=== PATIENT | female | born 1965 | race Caucasian/White ===

== ENCOUNTER 2017-08-16 01:16 | Inpatient (IN) | END 2017-08-19 15:05 | disposition home health service (06) | DRG 597 ==

== ENCOUNTER 2017-10-09 22:49 | Inpatient (IN) | END 2017-10-23 16:36 | disposition home or self-care (01) | DRG 809 ==

== ENCOUNTER 2017-11-20 12:52 | Inpatient (IN) | END 2017-11-29 19:00 | disposition home health service (06) | DRG 872 ==

== ENCOUNTER 2018-02-25 15:26 | Inpatient (IN) | payer MEDICAID, OTHER ==
[~2018-02-25] VITALS: Ht 152.4 cm; Wt 59.1 kg
[~2018-02-25 15:26] MED LIST: ACET325T40 PO; DOXY100T21 PO; HYDR-2457 PO; LACT1CAP28 PO; LOPE-123 PO; MAGN400T27 PO; MEGE400O4 PO; MORP30TA3 PO; MUPI22OI2 TOP; NIFE60TA2 PO; ONDA4TAB13 PO
[2018-02-25] MEDS ORDERED: SOD CHLORIDE 0.9% 1,000 ML IV STA (16:56)
[2018-02-25] MEDS ORDERED: OXYC-481 PO (17:09)
[2018-02-25] MEDS ORDERED: morphine 4 MG/ML VIAL IV STA (17:14)
--- NOTE | 2018-02-25 17:14 | ERD ---
ER Documentation Chief Complaint Chief Complaint BIB SELF, REFERRED BY ONCOLOGIST, CC: N/V UNABLE TO EAT X 3 DAYS HPI This is a 52-year-old female with a history of breast cancer, who is currently on chemotherapy who presents for nausea and vomiting for the last 3 days. She endorses generalized body aches as well, she denies fever, her last dose of chemotherapy was on February 16. She denies chest pain or shortness of breath, there are no alleviating or aggravating factors. She denies abdominal pain. ROS All systems reviewed and are negative except as per history of present illness. Medications Home Meds Active Scripts Ondansetron Hcl* (Zofran*) 4 Mg Tab, 4 MG PO Q6H PRN for NAUSEA AND OR VOMITING, #60 TAB Prov:BEBA CASTRO 10/23/17 Reported Medications Oxycodone Hcl* (IR) (Roxicodone*) 5 Mg Tab, 5 MG PO Q6H PRN for PAIN, TAB 02/25/18 Discontinued Scripts Doxycycline Monohydrate* (Doxycycline Monohydrate*) 100 Mg Tablet, 100 MG PO BID for 10 Days, #20 TAB Prov:ELVIA MEAD 11/29/17 Mupirocin* (Bactroban*) 2% -22 Gram Oint...g., 1 APPLIC TOP BID for 10 Days, #14 1 Refill Apply as directed Prov:MELIA WHITE MD 11/28/17 Magnesium Oxide* (Mag-Oxide*) 400 Mg Tablet, 400 MG PO BID for 7 Days, #14 TAB Prov:MELIA WHITE MD 11/28/17 Lactobacillus Rhamnosus GG (Culturelle) 1 Each Capsule, 1 CAP PO BID for 10 Days, #20 CAP otc Prov:MELIA WHITE MD 11/28/17 Acetaminophen (MAPAP) 325 Mg Tablet, 650 MG PO Q6H PRN for PAIN LEVEL 1-3 OR FEVER for 1 Day, TAB Prov:MELIA WHITE MD 11/28/17 Nifedipine (Procardia Xl) 60 Mg Tab.er.24, 60 MG PO DAILY for 14 Days, #14 TAB Prov:MELIA WHITE MD 11/28/17 Morphine Sulfate (Morphine Sulfate ER) 30 Mg Tablet.er, 30 MG PO Q12H, #30 TAB Prov:NGUYEN GONZALEZ MD 10/31/17 Megestrol Acetate (Megestrol Acetate) 400 Mg/10 Ml Oral.susp, 400 MG PO BID, #60 TAB Prov:NGUYEN GONZALEZ MD 10/31/17 Hydrocodone Bit-Acetaminophen (Hydrocodone Bit-Acetaminophen) 10-300 Mg Tablet, 1 TAB PO Q6H PRN for PAIN, #30 TAB Prov:NGUYEN GONZALEZ MD 10/31/17 Loperamide Hcl* (Loperamide Hcl*) 2 Mg Cap, 2 MG PO QID PRN for DIARRHEA, #60 CAP Prov:BEBA CASTRO 10/23/17 Allergies Allergies: Coded Allergies: No Known Allergy (Unverified , 02/25/18) PMhx/Soc History of Surgery: No Anesthesia Reaction: No Hx Neurological Disorder: No Hx Respiratory Disorders: No Hx Cardiac Disorders: Yes (htn ) Hx Psychiatric Problems: No Hx Miscellaneous Medical Probl: No Hx Alcohol Use: No Hx Substance Use: No Hx Tobacco Use: No Physical Exam Vitals Vital Signs Date Temp Pulse Resp B/P (MAP) Pulse Ox O2 O2 Flow FiO2 Time Delivery Rate 02/25/18 98.0 88 16 140/74 100 Room Air 18:44 (96) 02/25/18 98.8 101 16 119/72 100 15:38 (88) Physical Exam Const: Uncomfortable, chronically ill-appearing femur Head: Atraumatic Eyes: Normal Conjunctiva ENT: Normal External Ears, Nose and Mouth. Neck: Full range of motion. No meningismus. Resp: Clear to auscultation bilaterally Cardio: Regular rate and rhythm, no murmurs Abd: Soft, non tender, non distended. Normal bowel sounds Skin: No petechiae or rashes Back: No midline or flank tenderness Ext: No cyanosis, or edema Neur: Awake and alert Psych: Normal Mood and Affect Result Diagram: 02/26/1842602/26/18426 Results 24 hrs Laboratory Tests Test 02/25/18 17:09 White Blood Count 1.5 10^3/ul Red Blood Count 1.78 10^6/ul Hemoglobin 6.2 g/dl Hematocrit 18.1 % Mean Corpuscular Volume 101.7 fl Mean Corpuscular Hemoglobin 34.8 pg Mean Corpuscular Hemoglobin Concent 34.3 g/dl Red Cell Distribution Width 18.2 % Platelet Count 100 10^3/UL Mean Platelet Volume 10.3 fl Immature Granulocytes % 0.000 % Neutrophils % % Segmented Neutrophils % (Manual) 28 % Band Neutrophils % (Manual) 2 % Lymphocytes % % Lymphocytes % (Manual) 50 % Reactive Lymphocytes % (Manual) 8 % Monocytes % % Monocytes % (Manual) 8 % Eosinophils % % Basophils % % Basophils % (Manual) 3 % Nucleated Red Blood Cells % 1 % Immature Granulocytes # 0.000 10^3/ul Neutrophils # 10^3/ul Neutrophils # (Manual) 0.4 10^3/ul Band Neutrophils # 0.0 10^3/ul Lymphocytes (Manual) 0.7 10^3/ul Lymphocytes # 10^3/ul Reactive Lymphocytes # 0.1 10^3/ul Monocytes # 10^3/ul Monocytes # (Manual) 0.1 10^3/ul Eosinophils # 10^3/ul Basophils # 10^3/ul Basophils # (Manual) 0.0 10^3/ul Nucleated Red Blood Cells # 10^3/ul Pathologist Review (Hematology) YES Platelet Estimate DECREASED Giant Platelets 3 % Polychromasia 3+ Poikilocytosis 1+ Anisocytosis 2+ Macrocytosis 1+ Sodium Level 137 mmol/L Potassium Level 2.9 mmol/L Chloride Level 93 mmol/L Carbon Dioxide Level 30 mmol/L Anion Gap 14 Blood Urea Nitrogen 18 mg/dl Creatinine 1.15 mg/dl Est Glomerular Filtrat Rate mL/min 49 mL/min Glucose Level 101 mg/dl Lactic Acid Level 1.8 mmol/L Calcium Level 8.7 mg/dl Total Bilirubin 0.5 mg/dl Direct Bilirubin 0.00 mg/dl Indirect Bilirubin 0.5 mg/dl Aspartate Amino Transf (AST/SGOT) 47 IU/L Alanine Aminotransferase (ALT/SGPT) 41 IU/L Alkaline Phosphatase 67 IU/L Troponin I 0.013 ng/ml Total Protein 7.6 g/dl Albumin 4.1 g/dl Globulin 3.50 g/dl Albumin/Globulin Ratio 1.17 Lipase 37 U/L Current Medications Medications Dose Sig/Maame Start Time Status Last (Trade) Ordered Route PRN Stop Time Admin Dose Reason Admin Sodium 1,000 ml @ Q1H STAT 02/25/18 DC 02/25/18 Chloride 1,000 mls/hr IV 16:56 02/25/18 17:12 17:55 Morphine 4 mg ONCE STAT 02/25/18 DC Sulfate IV 17:14 02/25/18 (morphine) 17:16 1 mg ONCE STAT 02/25/18 DC 02/25/18 Hydromorphone IV 17:24 02/25/18 17:33 HCl 17:25 (Dilaudid) Ondansetron 4 mg ONCE STAT 02/25/18 DC 02/25/18 HCl (Zofran IV 17:24 02/25/18 17:33 Inj) 17:25 Sodium 250 ml @ 0 Q0M ONCE 02/25/18 DC Chloride mls/hr IV* 19:24 02/25/18 19:27 Potassium 80 meq ONCE STAT 02/25/18 DC 02/25/18 Chloride PO 19:27 02/25/18 20:18 (Klor-Con 20) 19:47 Procedures/MDM This is a 52-year-old female presents for evaluation of nausea and vomiting. Exam reveals a chronically ill-appearing, otherwise pleasant female, with nausea and vomiting. Differential diagnosis includes infection, although she has no fever, as well as side effects from her chemotherapy. She is given antiemetic and analgesia, however her labs are notable for hypokalemia, as well as anemia. Given her significant vomiting, and with slight abnormality I believe that she should be admitted, and this is in addition to her hemoglobin below baseline which could also be related to her chemotherapy, she will require transfusion with 2 units. Patient was agreeable to admission plan. Critical Care Time: 35 minutes Treatments/Evaluations: Close monitoring and treatment of unstable vital signs, cardiorespiratory, and neurologic status, while maintaining tight balance of fluid, respiratory, and cardiac interventions. This time includes discussing the case with the patient and the patient's family. This time does not include all procedures stated elsewhere in this record. This time also includes reviewing old records, labs and radiological studies. This time includes examining and re- examining the patient. Additionally, this time also includes arranging care with admitting and consulting physicians. EKG: Rate/Rhythm: Normal Sinus Rhythm QRS, ST, T-waves: Minimal T wave depressions in inferior leads Impression: No evidence of ischemia or arrhythmia Departure Diagnosis: Primary Impression: Nausea and vomiting Vomiting type: unspecified Vomiting Intractability: unspecified Qualified Codes: R11.2 - Nausea with vomiting, unspecified Additional Impressions: Anemia Anemia type: unspecified type Qualified Codes: D64.9 - Anemia, unspecified History of breast cancer Condition: Serious KUMARELVIA MD Feb 25, 2018 17:14
[2018-02-25] MEDS ORDERED: ONDANSETRON 4 MG INJ IV STA (17:24)
[2018-02-25] MEDS ORDERED: HYDROmorphONE 2 MG/ML SYG IV STA (17:24)
[2018-02-25] MEDS ORDERED: SOD CHLORIDE 0.9% 250 ML IV* ONE (19:24)
[2018-02-25] MEDS ORDERED: POTASSIUM CHLORIDE (SR) 20 MEQ TAB PO STA (19:27)
[2018-02-25] MEDS ORDERED: ACETAMINOPHEN 325 MG TAB PO PRN (22:00)
[2018-02-25] MEDS ORDERED: NACL 0.9% 3 ML SYG IV SCH (22:00)
[2018-02-25] MEDS ORDERED: ALBUTEROL/IPRATROPIUM (NEB) 3 ML AMP HHN PRN (22:00)
[2018-02-25] MEDS ORDERED: ONDANSETRON 4 MG INJ IV PRN (22:00)
[2018-02-26 02:10] VITALS: BP 109/54; PULSE 74; RESP 18
[2018-02-26 02:19] VITALS: Ht 152.4 cm; Wt 59.1 kg
[2018-02-26] MEDS ORDERED: COLLAGENASE 5 GM (UD JAR) TOP PRN (02:45)
[2018-02-26] MEDS ORDERED: PENDING SANTYL ORDER FOR WOUND CARE XX PRN (03:00)
--- NOTE | 2018-02-26 05:47 | HP ---
Date/Time of Note Date/Time of Note DATE: 02/26/18 TIME: 05:29 Assessment/Plan VTE Prophylaxis Pharmacological prophylaxis: heparin Lines/Catheters IV Catheter Type (from [facility]): Saline Lock Assessment/Plan Assessment/Plan 52-year-old female with left breast invasive ductal carcinoma diagnosed in July of last year status post chemo, facial and lower extremity cellulitis, anemia, brain lesion (per MRI 08/16/17) status post treatment with Decadron who presented to ER complaining of generalized body ache, nausea/vomiting and weakness found to be hypokalemic and pancytopenic with severe anemia, hemoglobin of 6.2. PLAN -Patient reported that she finished her chemo about 10 days ago. -Plan is for blood transfusion, replete potassium -Neutropenic precaution -Oncology consult -Patient with brain lesion as noted on MRI in July of last year. I am not quite sure if this represents a metastasis. She was treated with Decadron at that time. Need for repeat brain imaging per oncology. -Patient also has elevated creatinine of 1.15, which has been improving over the past 3 months. Given the timeframe, she is now considered to have CKD. Nephrology consult as needed. Result Diagram: 02/25/18 1709 02/25/18 1709 Results 24hrs Laboratory Tests Test 02/25/18 17:09 02/26/18 04:27 White Blood Count 1.5 #L Pending Red Blood Count 1.78 #L Pending Hemoglobin 6.2 *L Pending Hematocrit 18.1 #L Pending Mean Corpuscular Volume 101.7 H Pending Mean Corpuscular Hemoglobin 34.8 #H Pending Mean Corpuscular Hemoglobin Concent 34.3 Pending Red Cell Distribution Width 18.2 H Pending Platelet Count 100 #L Pending Mean Platelet Volume 10.3 # Pending Immature Granulocytes % 0.000 L Neutrophils % Segmented Neutrophils % (Manual) 28 L Band Neutrophils % (Manual) 2 Lymphocytes % Lymphocytes % (Manual) 50 Reactive Lymphocytes % (Manual) 8 H Monocytes % Monocytes % (Manual) 8 Eosinophils % Basophils % Basophils % (Manual) 3 H Nucleated Red Blood Cells % 1 H Immature Granulocytes # 0.000 Neutrophils # Neutrophils # (Manual) 0.4 L Band Neutrophils # 0.0 Lymphocytes (Manual) 0.7 L Lymphocytes # Reactive Lymphocytes # 0.1 H Monocytes # Monocytes # (Manual) 0.1 L Eosinophils # Basophils # Basophils # (Manual) 0.0 Nucleated Red Blood Cells # Pathologist Review (Hematology) YES Platelet Estimate DECREASED Giant Platelets 3 H Polychromasia 3+ Poikilocytosis 1+ Anisocytosis 2+ Macrocytosis 1+ Sodium Level 137 Potassium Level 2.9 *L Chloride Level 93 L Carbon Dioxide Level 30 Anion Gap 14 H Blood Urea Nitrogen 18 Creatinine 1.15 H Est Glomerular Filtrat Rate mL/min 49 L Glucose Level 101 Lactic Acid Level 1.8 Calcium Level 8.7 Total Bilirubin 0.5 Direct Bilirubin 0.00 Indirect Bilirubin 0.5 Aspartate Amino Transf (AST/SGOT) 47 H Alanine Aminotransferase (ALT/SGPT) 41 Alkaline Phosphatase 67 Troponin I 0.013 Total Protein 7.6 Albumin 4.1 Globulin 3.50 H Albumin/Globulin Ratio 1.17 Lipase 37 HPI/ROS Admit Date/Time Admit Date/Time Feb 25, 2018 at 19:55 Hx of Present Illness This is a 52-year-old female with left breast invasive ductal carcinoma diagnosed in July of last year status post chemo, facial and lower extremity cellulitis, anemia, brain lesion (per MRI) who presented to ER complaining of generalized body ache, nausea/vomiting and weakness. She said that she finished her chemo about 10 days ago. When presented to ER, she was found to have a hemoglobin of 6.2, WBC 1.5, platelets 100 and potassium 2.9. Patient had been admitted here times. Last admission was about 3 months ago. An MRI of the brain on 08/16/17 showed showed 5.9 mm rounded enhancing lesion in the left occipital lobe with slight adjacent vasogenic edema. At that time, patient was discharged on a Decadron. PMH/Family/Social Past Medical History Medications Current Medications IV Flush (NS 3 ml) 3 ml PER PROTOCOL IV ; Start 02/25/18 at 22:00 Ondansetron HCl (Zofran Inj) 4 mg Q6H PRN IV NAUSEA AND/OR VOMITING; Start 02/25/18 at 22:00 Acetaminophen (Tylenol Tab) 650 mg Q6H PRN PO PAIN LEVEL 1-3 OR FEVER; Start 02/25/18 at 22:00 Albuterol/ Ipratropium (Duoneb) 3 ml Q2H RESP THERAPY PRN HHN SHORTNESS OF BREATH; Start 02/25/18 at 22:00 Oxycodone HCl (Roxicodone) 5 mg Q6H PRN PO PAIN; Start 02/25/18 at 22:00 Collagenase (Santyl) 1 applic DAILY TOP ; Start 02/26/18 at 09:00 Collagenase (Santyl) 1 applic PRN PRN TOP SOILING; Start 02/26/18 at 02:45 Coded Allergies: No Known Allergy (Unverified , 02/25/18) Past Surgical History Past Surgical Hx: other Family History Significant Family History: no pertinent family hx Social History Smoking Status: Never smoker Exam/Review of Systems Vital Signs Vitals Vital Signs Date Temp Pulse Resp B/P (MAP) Pulse Ox O2 O2 Flow FiO2 Time Delivery Rate 02/26/18 98.3 74 18 109/54 100 02:10 (72) 02/26/18 Room Air 01:02 Intake and Output 02/25/18 02/25/18 02/26/18 1414:59 22:59 06:59 IntakeIntake Total 2170 ml OutputOutput Total 0 ml BalanceBalance 2170 ml Exam Exam Constitutional: other (no acute distress) Head: normocephalic Respiratory: other (slight decreased at bases) Cardiovascular: regular rate and rhythm Gastrointestinal: soft Extremities: normal pulses PMH/Family/Social Past Medical History Medical History: other (see hpi) Coded Allergies: No Known Drug Allergy (Verified Allergy, Unknown, 10/10/15) Past Surgical History Past Surgical Hx: other (see hpi) Family History Significant Family History: no pertinent family hx Social History Alcohol Use: other Smoking Status: Unknown if ever smoked Drug Use: other ARNAV CLARK MD Feb 26, 2018 05:39
[2018-02-26 08:00] VITALS: BP 101/56; PULSE 73; RESP 16
[2018-02-26] MEDS: COLLAGENASE 5 GM (UD JAR) TOP SCH (09:00)
[2018-02-26] MEDS: oxyCODONE 5 MG TAB PO PRN ×2 (09:37→21:42)
[2018-02-26] MEDS ORDERED: POTASSIUM CHLORIDE (SR) 20 MEQ TAB PO STA (12:55)
[2018-02-26] MEDS ORDERED: ONDANSETRON INJ 8 MG in SOD CHLORIDE 0.9% 50 ML IV PRN (13:00)
[2018-02-26] MEDS ORDERED: ONDANSETRON INJ 8 MG in DEXTROSE 5% 50 ML IV PRN (13:00)
--- NOTE | 2018-02-26 13:14 | PN ---
Date/Time of Note Date/Time of Note DATE: 02/26/18 TIME: 13:03 Assessment/Plan VTE Prophylaxis SCD applied (from Nsg): Yes Pharmacological prophylaxis: other Lines/Catheters IV Catheter Type (from Nrsg): Saline Lock Urinary Cath still in place: No Assessment/Plan Hospital Course S: The patient received PRBC transfusion yesterday. O: VS -see below PE: General: Lying in bed, no acute distress presently Head: Atraumatic Eyes: Normal Conjunctiva ENT: Normal External Ears, Nose and Mouth. Neck: Full range of motion. No meningismus. Resp: Clear to auscultation bilaterally Cardio: Regular rate and rhythm, no murmurs Abd: Soft, non tender, non distended. Normal bowel sounds Ext: No cyanosis, or edema Neur: No focal deficits Assessment/Plan: 52-year-old female with left breast invasive ductal carcinoma diagnosed in July of last year status post chemo, facial and lower extremity cellulitis, anemia, brain lesion (per MRI 08/16/17) status post treatment with Decadron who presented to ER complaining of generalized body ache, nausea/vomiting and weakness found to be hypokalemic and pancytopenic with severe anemia, hemoglobin of 6.2. # body pain/N/V - likely secondary to patient's cancer and recent chemotherapy -Continue IV fluids, antiemetics, pain control medications as needed -Follow hematology oncology recommendations #Pancytopenia: Again likely significant recent chemotherapy as outpatient. Received PRBC transfusion yesterday with improvement in hemoglobin, but patient still with leukopenia -Monitor CBC daily, follow hematology oncology recommendations -continue Neutropenic precaution #Invasive ductal breast carcinoma -Diagnosed July 2017 status post chemotherapy. Patient with brain lesion as noted on MRI in July of last year, not quite sure if this represents a metastasis. She was treated with Decadron at that time. -Monitor, follow-up recommendations from oncology consult #Renal insufficiency -Patient also has slightly elevated creatinine of 1.15, which has been improving over the past 3 months. -IV fluids, monitor BUN/creatinine levels, consider nephrology consult as needed if not improved. Result Diagram: 02/26/18 0427 02/26/18 0427 Results 24hrs Laboratory Tests Test 02/25/18 17:09 02/26/18 04:27 White Blood Count 1.5 #L 1.6 L Red Blood Count 1.78 #L 2.54 #L Hemoglobin 6.2 *L 8.4 #L Hematocrit 18.1 #L 24.1 #L Mean Corpuscular Volume 101.7 H 94.9 Mean Corpuscular Hemoglobin 34.8 #H 33.1 H Mean Corpuscular Hemoglobin Concent 34.3 34.9 Red Cell Distribution Width 18.2 H 17.9 H Platelet Count 100 #L 88 L Mean Platelet Volume 10.3 # 10.5 H Immature Granulocytes % 0.000 L 0.000 L Neutrophils % Segmented Neutrophils % (Manual) 28 L 22 L Band Neutrophils % (Manual) 2 2 Lymphocytes % Lymphocytes % (Manual) 50 37 Reactive Lymphocytes % (Manual) 8 H 2 H Monocytes % Monocytes % (Manual) 8 36 H Eosinophils % Basophils % Basophils % (Manual) 3 H Nucleated Red Blood Cells % 1 H 0.0 Immature Granulocytes # 0.000 0.000 Neutrophils # Neutrophils # (Manual) 0.4 L 0.4 L Band Neutrophils # 0.0 0.0 Lymphocytes (Manual) 0.7 L 0.5 L Lymphocytes # Reactive Lymphocytes # 0.1 H 0.0 Monocytes # Monocytes # (Manual) 0.1 L 0.5 Eosinophils # Basophils # Basophils # (Manual) 0.0 Nucleated Red Blood Cells # Pathologist Review (Hematology) YES Platelet Estimate DECREASED DECREASED Giant Platelets 3 H 3 H Polychromasia 3+ 2+ Poikilocytosis 1+ 1+ Anisocytosis 2+ 1+ Macrocytosis 1+ Sodium Level 137 141 Potassium Level 2.9 *L 3.0 L Chloride Level 93 L 99 Carbon Dioxide Level 30 30 Anion Gap 14 H 12 Blood Urea Nitrogen 18 17 Creatinine 1.15 H 1.20 H Est Glomerular Filtrat Rate mL/min 49 L 47 L Glucose Level 101 103 Lactic Acid Level 1.8 Calcium Level 8.7 8.3 L Total Bilirubin 0.5 0.6 Direct Bilirubin 0.00 0.00 Indirect Bilirubin 0.5 0.6 Aspartate Amino Transf (AST/SGOT) 47 H 39 Alanine Aminotransferase (ALT/SGPT) 41 34 Alkaline Phosphatase 67 54 Troponin I 0.013 Total Protein 7.6 6.8 Albumin 4.1 3.6 Globulin 3.50 H 3.20 Albumin/Globulin Ratio 1.17 1.12 Lipase 37 Myelocytes % (Manual) 1 H Myelocytes # 0.0 Microcytosis 1+ Phosphorus Level 2.8 Magnesium Level 1.2 L Exam/Review of Systems Vital Signs Vitals Vital Signs Date Temp Pulse Resp B/P (MAP) Pulse Ox O2 O2 Flow FiO2 Time Delivery Rate 02/26/18 98.3 73 16 101/56 100 08:00 (71) 02/26/18 Room Air 01:02 Intake and Output 02/25/18 02/25/18 02/26/18 1515:00 23:00 07:00 IntakeIntake Total 2170 ml OutputOutput Total 0 ml BalanceBalance 2170 ml Medications Medications Current Medications IV Flush (NS 3 ml) 3 ml PER PROTOCOL IV ; Start 02/25/18 at 22:00 Acetaminophen (Tylenol Tab) 650 mg Q6H PRN PO PAIN LEVEL 1-3 OR FEVER; Start 02/25/18 at 22:00 Albuterol/ Ipratropium (Duoneb) 3 ml Q2H RESP THERAPY PRN HHN SHORTNESS OF BR EATH; Start 02/25/18 at 22:00 Oxycodone HCl (Roxicodone) 5 mg Q6H PRN PO PAIN Last administered on 02/26/18at 09:37; Admin Dose 5 MG; Start 02/25/18 at 22:00 Collagenase (Santyl) 1 applic DAILY TOP ; Start 02/26/18 at 09:00 Collagenase (Santyl) 1 applic PRN PRN TOP SOILING; Start 02/26/18 at 02:45 Metoclopramide HCl (Reglan) 5 mg Q4H PRN IV NAUSEA; Start 02/26/18 at 13:00 Ondansetron HCl 8 mg/Sodium Chloride 54 ml @ 216 mls/hr Q6H PRN IV NAUSEA AND/OR VOMITING; Start 02/26/18 at 13:00 Potassium Chloride (Klor-Con 20) 40 meq ONCE STAT PO ; Start 02/26/18 at 12:55; Stop 02/26/18 at 12:56; Status UNV Potassium Chloride 10 meq/ Sodium Chloride 1,005 ml @ 75 mls/hr [id number] IV ; Start 02/26/18 at 13:00; Status UNV Magnesium Sulfate 3 gm/Dextrose 106 ml @ 35.333 mls/ hr ONCE ONCE IVPB ; Start 02/26/18 at 13:00; Stop 1/5/19 at 15:59; Status UNV Ondansetron HCl 8 mg/Dextrose 54 ml @ 108 mls/hr Q6H PRN IV NAUSEA AND/OR VOMITING; Start 02/26/18 at 13:00; Status UNV JERZY TAYLOR Feb 26, 2018 13:13
[2018-02-26] MEDS ORDERED: MAGNESIUM SULFATE 3 GM in DEXTROSE 5% 100 ML IVPB ONE (14:00)
[2018-02-26 14:23] VITALS: BP 108/58; PULSE 79; RESP 18
[2018-02-26] MEDS ORDERED: ONDANSETRON 4 MG INJ IV PRN (16:00)
--- NOTE | 2018-02-26 16:00 | CONS ---
Date/Time of Note Date/Time of Note DATE: 02/26/18 TIME: 15:49 Assessment/Plan Assessment/Plan Hospital Course #L sided Breast Cancer, Her2 + -pt has already undergone neoadjuvant radiation and chemotherapy with TCHP x 6 cycles -once her acute issues resolve she will proceed with surgery with Dr. Carrasquillo -this will be followed by 1 year of Herceptin/ Perjeta maintenance #Neutropenia -2/2 chemotherapy -pt does not appear actively infected -will start Neupogen 300 mcg q day #Anemia -2/2 chemotherapy -agree with blood transfusion. pt has responded well #MANDEEP -2/2 dehydration and anemia -Cr improving -continue IV fluids #Diarrhea -cidff negative -likely 2/2 chemotherapy -continue to monitor -Imodium as needed Result Diagram: 02/26/18 0427 02/26/18 0427 Results 24hrs Laboratory Tests Test 02/25/18 17:09 02/26/18 04:27 White Blood Count 1.5 #L 1.6 L Red Blood Count 1.78 #L 2.54 #L Hemoglobin 6.2 *L 8.4 #L Hematocrit 18.1 #L 24.1 #L Mean Corpuscular Volume 101.7 H 94.9 Mean Corpuscular Hemoglobin 34.8 #H 33.1 H Mean Corpuscular Hemoglobin Concent 34.3 34.9 Red Cell Distribution Width 18.2 H 17.9 H Platelet Count 100 #L 88 L Mean Platelet Volume 10.3 # 10.5 H Immature Granulocytes % 0.000 L 0.000 L Neutrophils % Segmented Neutrophils % (Manual) 28 L 22 L Band Neutrophils % (Manual) 2 2 Lymphocytes % Lymphocytes % (Manual) 50 37 Reactive Lymphocytes % (Manual) 8 H 2 H Monocytes % Monocytes % (Manual) 8 36 H Eosinophils % Basophils % Basophils % (Manual) 3 H Nucleated Red Blood Cells % 1 H 0.0 Immature Granulocytes # 0.000 0.000 Neutrophils # Neutrophils # (Manual) 0.4 L 0.4 L Band Neutrophils # 0.0 0.0 Lymphocytes (Manual) 0.7 L 0.5 L Lymphocytes # Reactive Lymphocytes # 0.1 H 0.0 Monocytes # Monocytes # (Manual) 0.1 L 0.5 Eosinophils # Basophils # Basophils # (Manual) 0.0 Nucleated Red Blood Cells # Pathologist Review (Hematology) YES Platelet Estimate DECREASED DECREASED Giant Platelets 3 H 3 H Polychromasia 3+ 2+ Poikilocytosis 1+ 1+ Anisocytosis 2+ 1+ Macrocytosis 1+ Sodium Level 137 141 Potassium Level 2.9 *L 3.0 L Chloride Level 93 L 99 Carbon Dioxide Level 30 30 Anion Gap 14 H 12 Blood Urea Nitrogen 18 17 Creatinine 1.15 H 1.20 H Est Glomerular Filtrat Rate mL/min 49 L 47 L Glucose Level 101 103 Lactic Acid Level 1.8 Calcium Level 8.7 8.3 L Total Bilirubin 0.5 0.6 Direct Bilirubin 0.00 0.00 Indirect Bilirubin 0.5 0.6 Aspartate Amino Transf (AST/SGOT) 47 H 39 Alanine Aminotransferase (ALT/SGPT) 41 34 Alkaline Phosphatase 67 54 Troponin I 0.013 Total Protein 7.6 6.8 Albumin 4.1 3.6 Globulin 3.50 H 3.20 Albumin/Globulin Ratio 1.17 1.12 Lipase 37 Myelocytes % (Manual) 1 H Myelocytes # 0.0 Microcytosis 1+ Phosphorus Level 2.8 Magnesium Level 1.2 L Consultation Date/Type/Reason Admit Date/Time Feb 25, 2018 at 19:55 Date of Consultation: Feb 26, 2018 Type of Consult oncology Reason for Consultation breast cancer/anemia Requesting Provider: JERZY TAYLOR of Present Illness MS Carrillo is a pleasant 52 yo female currently being treated by my associate Dr. Lewis for STAGE III ER-/GA-/Her2 + L sided Breast cancer. 02/16/18 pt completed her 6th cycles of neoadjuvant TCHP. Pt now presents with weakness, fatigue and diarrhea. Initial labs reveal a Hg 6.2, Cr 1.15 and K < 3. PT has since received 2 untis of PRBC and is currently receiving K supplementation and fluids. C diff is negative. Pt's sx have improved since admission. Constitutional: diaphoresis, febrile, poor po Eyes: no complaints ENT: no complaints Respiratory: pain, shortness of breath Cardiovascular: chest pain, lightheadedness Gastrointestinal: decreased appetite, diarrhea, nausea Genitourinary: no complaints Musculoskeletal: back pain, bone/joint pain Skin: no complaints Neurologic: no complaints Endocrine: no complaints Lymphatic: no complaints Past Medical History Medical History: no pertinent history Medications Current Medications IV Flush (NS 3 ml) 3 ml PER PROTOCOL IV ; Start 02/25/18 at 22:00 Acetaminophen (Tylenol Tab) 650 mg Q6H PRN PO PAIN LEVEL 1-3 OR FEVER; Start 02/25/18 at 22:00 Albuterol/ Ipratropium (Duoneb) 3 ml Q2H RESP THERAPY PRN HHN SHORTNESS OF BREATH; Start 02/25/18 at 22:00 Oxycodone HCl (Roxicodone) 5 mg Q6H PRN PO PAIN Last administered on 02/26/18at 09:37; Admin Dose 5 MG; Start 02/25/18 at 22:00 Collagenase (Santyl) 1 applic DAILY TOP ; Start 02/26/18 at 09:00 Collagenase (Santyl) 1 applic PRN PRN TOP SOILING; Start 02/26/18 at 02:45 Metoclopramide HCl (Reglan) 5 mg Q4H PRN IV NAUSEA; Start 02/26/18 at 13:00 Ondansetron HCl 8 mg/Sodium Chloride 54 ml @ 216 mls/hr Q6H PRN IV NAUSEA AND/OR VOMITING; Start 02/26/18 at 13:00 Potassium Chloride 10 meq/ Sodium Chloride 1,005 ml @ 75 mls/hr [id number] IV ; Start 02/26/18 at 14:00 Magnesium Sulfate 3 gm/Dextrose 106 ml @ 35.333 mls/ hr ONCE ONCE IVPB Last administered on 02/26/18at 15:20; Admin Dose 35.333 MLS/HR; Start 02/26/18 at 14:00; Stop 02/26/18 at 16:59 Ondansetron HCl 8 mg/Dextrose 54 ml @ 108 mls/hr Q6H PRN IV NAUSEA AND/OR VOMITING; Start 02/26/18 at 13:00 Allergies: Coded Allergies: No Known Allergy (Unverified , 02/25/18) Past Surgical History Past Surgical Hx: other Family History Significant Family History: no pertinent family hx Social History Alcohol Use: none Smoking Status: Never smoker Drug Use: none Exam/Review of Systems Vital Signs Vitals Vital Signs Date Temp Pulse Resp B/P (MAP) Pulse Ox O2 O2 Flow FiO2 Time Delivery Rate 02/26/18 98.4 79 18 108/58 100 14:23 (75) 02/26/18 Room Air 01:02 Intake and Output 02/25/18 02/25/18 02/26/18 1515:00 23:00 07:00 IntakeIntake Total 2170 ml OutputOutput Total 0 ml BalanceBalance 2170 ml Exam Constitutional: alert, oriented Psych: no complaints Head: atraumatic Eyes: nl conjunctiva ENMT: nl external ears & nose Neck: supple Respiratory: clear to auscultation Cardiovascular: regular rate and rhythm Gastrointestinal: soft Musculoskeletal: nl extremities to inspection Extremities: normal pulses Medications Medications Current Medications IV Flush (NS 3 ml) 3 ml PER PROTOCOL IV ; Start 02/25/18 at 22:00 Acetaminophen (Tylenol Tab) 650 mg Q6H PRN PO PAIN LEVEL 1-3 OR FEVER; Start 02/25/18 at 22:00 Albuterol/ Ipratropium (Duoneb) 3 ml Q2H RESP THERAPY PRN HHN SHORTNESS OF BREATH; Start 02/25/18 at 22:00 Oxycodone HCl (Roxicodone) 5 mg Q6H PRN PO PAIN Last administered on 02/26/18at 09:37; Admin Dose 5 MG; Start 02/25/18 at 22:00 Collagenase (Santyl) 1 applic DAILY TOP ; Start 02/26/18 at 09:00 Collagenase (Santyl) 1 applic PRN PRN TOP SOILING; Start 02/26/18 at 02:45 Metoclopramide HCl (Reglan) 5 mg Q4H PRN IV NAUSEA; Start 02/26/18 at 13:00 Ondansetron HCl 8 mg/Sodium Chloride 54 ml @ 216 mls/hr Q6H PRN IV NAUSEA AND/OR VOMITING; Start 02/26/18 at 13:00 Potassium Chloride 10 meq/ Sodium Chloride 1,005 ml @ 75 mls/hr [id number] IV ; Start 02/26/18 at 14:00 Magnesium Sulfate 3 gm/Dextrose 106 ml @ 35.333 mls/ hr ONCE ONCE IVPB Last administered on 02/26/18at 15:20; Admin Dose 35.333 MLS/HR; Start 02/26/18 at 14:00; Stop 02/26/18 at 16:59 Ondansetron HCl 8 mg/Dextrose 54 ml @ 108 mls/hr Q6H PRN IV NAUSEA AND/OR VOMITING; Start 02/26/18 at 13:00 MIKE RIVERO M.D. Feb 26, 2018 16:00
[2018-02-26 20:00] VITALS: BP 143/70; PULSE 86; RESP 18
[2018-02-26] MEDS: POTASSIUM CHLORIDE 10 MEQ in SOD CHLORIDE 0.45% 1,000 ML IV SCH (21:30)
[2018-02-27 02:00] VITALS: BP 113/62; PULSE 70; RESP 18
[2018-02-27] MEDS: POTASSIUM CHLORIDE 10 MEQ in SOD CHLORIDE 0.45% 1,000 ML IV SCH ×2 (03:24→11:22)
[2018-02-27 08:45] VITALS: BP 113/66; PULSE 64; RESP 18
[2018-02-27] MEDS: COLLAGENASE 5 GM (UD JAR) TOP SCH ×2 (09:00→10:00)
[2018-02-27] MEDS: METOCLOPRAMIDE 10 MG INJ IV PRN (10:00)
--- NOTE | 2018-02-27 12:31 | CONS ---
Date/Time of Note Date/Time of Note DATE: 02/27/18 TIME: 12:27 Assessment/Plan Assessment/Plan Assessment/Plan #L sided Breast Cancer, Her2 + -pt has already undergone neoadjuvant radiation and chemotherapy with TCHP x 6 cycles -once her acute issues resolve she will proceed with surgery with Dr. Carrasquillo -this will be followed by 1 year of Herceptin/ Perjeta maintenance #Neutropenia- wbc 2.1 today -2/2 chemotherapy -pt does not appear actively infected -will start Neupogen 300 mcg q day #Anemia Hgb -8.0 today; -2/2 chemotherapy - 02/25/2018- sp 2 units blood transfusion. pt has responded well #MANDEEP -2/2 dehydration and anemia -Cr improving- trended down to 1.10 -continue IV fluids #Diarrhea -c- diff negative -likely 2/2 chemotherapy -continue to monitor -Imodium as needed # Intractable nausea - cont Reglan, Zofran- effective # Acute Hypokalemia - management per PMD Approximately 35 min was spend in coordination of her care; dw staff. Patient seen in collaboration with Dr Vaughan Result Diagram: 02/27/18 0443 02/27/18 0443 Results 24hrs Laboratory Tests Test 02/27/18 04:43 White Blood Count 2.1 #L Red Blood Count 2.40 L Hemoglobin 8.0 L Hematocrit 23.1 L Mean Corpuscular Volume 96.3 Mean Corpuscular Hemoglobin 33.3 H Mean Corpuscular Hemoglobin Concent 34.6 Red Cell Distribution Width 18.2 H Platelet Count 97 L Mean Platelet Volume 10.0 Immature Granulocytes % 0.000 L Neutrophils % Segmented Neutrophils % (Manual) 20 L Lymphocytes % Lymphocytes % (Manual) 41 Reactive Lymphocytes % (Manual) 2 H Monocytes % Monocytes % (Manual) 37 H Eosinophils % Basophils % Nucleated Red Blood Cells % 0.0 Immature Granulocytes # 0.000 Neutrophils # Lymphocytes (Manual) 0.8 Lymphocytes # Reactive Lymphocytes # 0.0 Monocytes # Monocytes # (Manual) 0.7 Eosinophils # Basophils # Nucleated Red Blood Cells # Toxic Granulation 1+ Platelet Estimate DECREASED Giant Platelets 3 H Polychromasia 3+ Poikilocytosis 1+ Anisocytosis 1+ Microcytosis 1+ Sodium Level 136 Potassium Level 3.1 L Chloride Level 102 Carbon Dioxide Level 27 Anion Gap 7 Blood Urea Nitrogen 11 Creatinine 1.10 H Est Glomerular Filtrat Rate mL/min 52 L Glucose Level 86 Calcium Level 8.6 Phosphorus Level 2.7 Magnesium Level 2.1 Consultation Date/Type/Reason Admit Date/Time Feb 25, 2018 at 19:55 Initial Consult Date 02/26/18 Requesting Provider: JERZY TAYLOR 24 HR Interval Summary Free Text/Dictation -c/o nausea- zofran effective -on neutropenic precautions - no new issues reported overnight Detailed Summary Eyes: no complaints ENT: no complaints Respiratory: no complaints Cardiovascular: no complaints Gastrointestinal: diarrhea, nausea Genitourinary: no complaints Musculoskeletal: no complaints Skin: no complaints Neurologic: no complaints (.) Endocrine: no complaints Exam/Review of Systems Vital Signs Vitals Vital Signs Date Temp Pulse Resp B/P (MAP) Pulse Ox O2 O2 Flow FiO2 Time Delivery Rate 02/27/18 98.2 64 18 113/66 100 08:45 (82) 02/26/18 Room Air 01:02 Intake and Output 02/26/18 02/26/18 02/27/18 1515:00 23:00 07:00 IntakeIntake Total 240 ml 1506 ml 910 ml BalanceBalance 240 ml 1506 ml 910 ml Exam Constitutional: alert, well developed Psych: no complaints Eyes: nl conjunctiva, EOMI, nl lids, nl sclera ENMT: nl external ears & nose Neck: non-tender Respiratory: diminished breath sounds (bilaterally) Cardiovascular: nl pulses, other (s1s2) Gastrointestinal: soft, non-tender Musculoskeletal: nl extremities to inspection Extremities: normal pulses Neurological: nl mental status, nl speech Lymph: nontender Medications Medications Current Medications IV Flush (NS 3 ml) 3 ml PER PROTOCOL IV ; Start 02/25/18 at 22:00 Acetaminophen (Tylenol Tab) 650 mg Q6H PRN PO PAIN LEVEL 1-3 OR FEVER; Start 02/25/18 at 22:00 Albuterol/ Ipratropium (Duoneb) 3 ml Q2H RESP THERAPY PRN HHN SHORTNESS OF BREATH; Start 02/25/18 at 22:00 Oxycodone HCl (Roxicodone) 5 mg Q6H PRN PO PAIN Last administered on 02/26/18at 21:42; Admin Dose 5 MG; Start 02/25/18 at 22:00 Collagenase (Santyl) 1 applic DAILY TOP ; Start 02/26/18 at 09:00 Collagenase (Santyl) 1 applic PRN PRN TOP SOILING; Start 02/26/18 at 02:45 Metoclopramide HCl (Reglan) 5 mg Q4H PRN IV NAUSEA Last administered on 02/27/18at 10:00; Admin Dose 5 MG; Start 02/26/18 at 13:00 Potassium Chloride 10 meq/ Sodium Chloride 1,005 ml @ 75 mls/hr [id number] IV Last administered on 02/27/18at 11:22; Admin Dose 75 MLS/HR; Start 02/26/18 at 14:00 Ondansetron HCl 8 mg/Dextrose 54 ml @ 108 mls/hr Q6H PRN IV NAUSEA AND/OR VOMITING; Start 02/26/18 at 13:00 JACKSON BERGERON Feb 27, 2018 12:31 pm
[2018-02-27] MEDS ORDERED: LOPERAMIDE 2 MG CAP PO PRN (13:00)
[2018-02-27 14:59] VITALS: BP 106/64; PULSE 64; RESP 18
[2018-02-27] MEDS ORDERED: POTASSIUM CHLORIDE (SR) 20 MEQ TAB PO STA (15:01)
--- NOTE | 2018-02-27 15:10 | PN ---
Date/Time of Note Date/Time of Note DATE: 02/27/18 TIME: 15:06 Assessment/Plan VTE Prophylaxis Risk score (from Nsg)>0 risk: 4 SCD applied (from Nsg): Yes Pharmacological prophylaxis: other Lines/Catheters IV Catheter Type (from Nrsg): Saline Lock Urinary Cath still in place: No Assessment/Plan Hospital Course S: Per nursing staff, still having some diarrhea symptoms and nausea with food. Seen by hematology oncology team yesterday and today. No fevers overnight. O: VS -see below PE: General: Lying in bed, no acute distress presently Head: Atraumatic Eyes: Normal Conjunctiva ENT: Normal External Ears, Nose and Mouth. Neck: Full range of motion. No meningismus. Resp: Clear to auscultation bilaterally Cardio: Regular rate and rhythm, no murmurs Abd: Soft, non tender, non distended. Normal bowel sounds Ext: No cyanosis, or edema Neur: No focal deficits Assessment/Plan: 52-year-old female with left breast invasive ductal carcinoma diagnosed in July of last year status post chemo, facial and lower extremity cellulitis, anemia, brain lesion (per MRI 08/16/17) status post treatment with Decadron who presented to ER complaining of generalized body ache, nausea/vomiting and weakness found to be hypokalemic and pancytopenic with se delmi anemia, hemoglobin of 6.2. # body pain/N/V - likely secondary to patient's cancer and recent chemotherapy -Continue IV fluids, antiemetics, pain control medications as needed -Follow hematology oncology recommendations #Pancytopenia: Again likely significant recent chemotherapy as outpatient. Received PRBC transfusion 2 days ago with improvement in hemoglobin, but patient still with leukopenia. -Monitor CBC daily, follow hematology oncology recommendations -continue Neutropenic precaution -Per hematology oncology recognitions, start Neupogen 300 mcg daily -Replete low electrolytes -Imodium as needed for diarrhea, per hematology oncology rec's today #Invasive ductal breast carcinoma -Diagnosed July 2017 status post chemotherapy. Patient with brain lesion as noted on MRI in July of last year, not quite sure if this represents a metastasis. She was treated with Decadron at that time. -Monitor, follow-up recommendations from oncology consult #Renal insufficiency -Patient also has slightly elevated creatinine, which has been improving over the past 3 months. -IV fluids, monitor BUN/creatinine levels, consider nephrology consult as needed if not improved. Result Diagram: 02/27/18 0443 02/27/18 0443 Results 24hrs Laboratory Tests Test 02/27/18 04:43 White Blood Count 2.1 #L Red Blood Count 2.40 L Hemoglobin 8.0 L Hematocrit 23.1 L Mean Corpuscular Volume 96.3 Mean Corpuscular Hemoglobin 33.3 H Mean Corpuscular Hemoglobin Concent 34.6 Red Cell Distribution Width 18.2 H Platelet Count 97 L Mean Platelet Volume 10.0 Immature Granulocytes % 0.000 L Neutrophils % Segmented Neutrophils % (Manual) 20 L Lymphocytes % Lymphocytes % (Manual) 41 Reactive Lymphocytes % (Manual) 2 H Monocytes % Monocytes % (Manual) 37 H Eosinophils % Basophils % Nucleated Red Blood Cells % 0.0 Immature Granulocytes # 0.000 Neutrophils # Lymphocytes (Manual) 0.8 Lymphocytes # Reactive Lymphocytes # 0.0 Monocytes # Monocytes # (Manual) 0.7 Eosinophils # Basophils # Nucleated Red Blood Cells # Toxic Granulation 1+ Platelet Estimate DECREASED Giant Platelets 3 H Polychromasia 3+ Poikilocytosis 1+ Anisocytosis 1+ Microcytosis 1+ Sodium Level 136 Potassium Level 3.1 L Chloride Level 102 Carbon Dioxide Level 27 Anion Gap 7 Blood Urea Nitrogen 11 Creatinine 1.10 H Est Glomerular Filtrat Rate mL/min 52 L Glucose Level 86 Calcium Level 8.6 Phosphorus Level 2.7 Magnesium Level 2.1 Exam/Review of Systems Vital Signs Vitals Vital Signs Date Temp Pulse Resp B/P (MAP) Pulse Ox O2 O2 Flow FiO2 Time Delivery Rate 02/27/18 98.2 64 18 106/64 100 14:59 (78) 02/26/18 Room Air 01:02 Intake and Output 02/26/18 02/26/18 02/27/18 1515:00 23:00 07:00 IntakeIntake Total 240 ml 1506 ml 910 ml BalanceBalance 240 ml 1506 ml 910 ml Medications Medications Current Medications IV Flush (NS 3 ml) 3 ml PER PROTOCOL IV ; Start 02/25/18 at 22:00 Acetaminophen (Tylenol Tab) 650 mg Q6H PRN PO PAIN LEVEL 1-3 OR FEVER; Start 02/25/18 at 22:00 Albuterol/ Ipratropium (Duoneb) 3 ml Q2H RESP THERAPY PRN HHN SHORTNESS OF BREATH; Start 02/25/18 at 22:00 Oxycodone HCl (Roxicodone) 5 mg Q6H PRN PO PAIN Last administered on 02/26/18at 21:42; Admin Dose 5 MG; Start 02/25/18 at 22:00 Collagenase (Santyl) 1 applic DAILY TOP ; Start 02/26/18 at 09:00 Collagenase (Santyl) 1 applic PRN PRN TOP SOILING; Start 02/26/18 at 02:45 Metoclopramide HCl (Reglan) 5 mg Q4H PRN IV NAUSEA Last administered on 02/27/18at 10:00; Admin Dose 5 MG; Start 02/26/18 at 13:00 Potassium Chloride 10 meq/ Sodium Chloride 1,005 ml @ 75 mls/hr [id number] IV Last administered on 02/27/18at 11:22; Admin Dose 75 MLS/HR; Start 02/26/18 at 14:00 Ondansetron HCl 8 mg/Dextrose 54 ml @ 108 mls/hr Q6H PRN IV NAUSEA AND/OR VOMITING Last administered on 02/27/18at 13:02; Admin Dose 108 MLS/HR; Start 02/26/18 at 13:00 Loperamide HCl (Imodium Cap) 2 mg DAILY PRN PO DIARRHEA Last administered on 02/27/18at 13:02; Admin Dose 2 MG; Start 02/27/18 at 13:00 Potassium Chloride (Klor-Con 20) 40 meq ONCE STAT PO ; Start 02/27/18 at 15:01; Stop 02/27/18 at 15:02; Status JERZY BLUE Feb 27, 2018 15:10
[2018-02-27] MEDS: oxyCODONE 5 MG TAB PO PRN (15:44)
[2018-02-27] MEDS ORDERED: FILGRASTIM 300 MCG INJ SC SCH (17:00)
[2018-02-27 20:00] VITALS: BP 104/71; PULSE 72; RESP 19
[2018-02-28] MEDS: POTASSIUM CHLORIDE 10 MEQ in SOD CHLORIDE 0.45% 1,000 ML IV SCH ×2 (00:39→16:08)
[2018-02-28 02:00] VITALS: BP 111/65; PULSE 77; RESP 18
[2018-02-28] MEDS: COLLAGENASE 5 GM (UD JAR) TOP SCH (07:41)
[2018-02-28 08:36] VITALS: BP 111/55; PULSE 73; RESP 17
[2018-02-28] MEDS ORDERED: MAGNESIUM SULFATE 2 GM/50 ML 50 ML IVPB ONE (10:00)
--- NOTE | 2018-02-28 11:43 | CONS ---
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 who has completed brain XRT August 2017, followed by TCHP x 6 cycles completed 02/16 -stop GCSF -CT CAP now -discharge after diarrhea resolves, cont imodium -f/u with Dr Carrasquillo post scans for surgical planning -f/u with Dr Boss as per his rec Result Diagram: 02/28/18 0537 02/28/18 0537 Results 24hrs Laboratory Tests Test 02/28/18 05:37 White Blood Count 8.2 # Red Blood Count 2.62 L Hemoglobin 8.9 L Hematocrit 26.2 L Mean Corpuscular Volume 100.0 Mean Corpuscular Hemoglobin 34.0 H Mean Corpuscular Hemoglobin Concent 34.0 Red Cell Distribution Width 18.3 H Platelet Count 103 L Mean Platelet Volume 9.9 Immature Granulocytes % 1.500 H Neutrophils % Segmented Neutrophils % (Manual) 54 Band Neutrophils % (Manual) 16 H Lymphocytes % Lymphocytes % (Manual) 21 Monocytes % Monocytes % (Manual) 8 Eosinophils % Basophils % Metamyelocytes % (manual) 1 H Nucleated Red Blood Cells % 0.0 Immature Granulocytes # 0.120 H Neutrophils # Neutrophils # (Manual) 4.5 Band Neutrophils # 1.3 H Lymphocytes (Manual) 1.7 Lymphocytes # Monocytes # Monocytes # (Manual) 0.6 Eosinophils # Basophils # Metamyelocytes # 0.0 Nucleated Red Blood Cells # Platelet Estimate DECREASED Giant Platelets 8 H Polychromasia 1+ Anisocytosis 1+ Spherocytes 1+ Sodium Level 135 Potassium Level 3.7 Chloride Level 105 Carbon Dioxide Level 22 Anion Gap 8 Blood Urea Nitrogen 5 L Creatinine 1.08 H Est Glomerular Filtrat Rate mL/min 53 L Glucose Level 82 Calcium Level 8.7 Phosphorus Level 2.8 Magnesium Level 1.6 L Consultation Date/Type/Reason Admit Date/Time Feb 25, 2018 at 19:55 Initial Consult Date 02/26/18 Requesting Provider: JERZY TAYLOR 24 HR Interval Summary Free Text/Dictation 52 yo F with large, quickly growing L breast mass found to be malignant (biopsy done 6.15, path returned 6.18) Path showed invasive ductal carcinoma, grade 3/3. no DCIS ER/IA negative HER 2 richard +3 Had staging studies: NM bone scan 6.--no skeletal mets CT AP 6..18 Large left breast cancer with skin and chest wall involvement.. Hepatic steatosis with small cyst. No definite liver metastasis. Arterial phase imaging was not performed. MRI Brain 6. IMPRESSION: 5.9 mm rounded enhancing lesion in the left occipital lobe with slight adjacent vasogenic edema. Given the history, metastasis must be strongly considered. she completed brain radiation by Dr Boss for presumed brain met. Also has completed TCHP x 6 cycles a few weeks ago Plan is for restaging scans as an outpt then surgery with Dr Carrasquillo for left breast mastectomy. Followed by 1 year total of herceptin and perjeta She was admitted for neutropenia without sepsis and anemia and electrolyte imbalance Constitutional: poor po Detailed Summary Eyes: no complaints ENT: no complaints Respiratory: no complaints Cardiovascular: no complaints Gastrointestinal: decreased appetite, diarrhea Genitourinary: no complaints Skin: no complaints Neurologic: no complaints Endocrine: no complaints Lymphatic: no complaints Psychological: no complaints Immunologic: no complaints Exam/Review of Systems Vital Signs Vitals Vital Signs Date Temp Pulse Resp B/P (MAP) Pulse Ox O2 O2 Flow FiO2 Time Delivery Rate 02/28/18 98.6 73 17 111/55 100 Room Air 08:36 (73) Intake and Output 02/27/18 02/27/18 02/28/18 1515:00 23:00 07:00 IntakeIntake Total 708 ml 375 ml 1005 ml BalanceBalance 708 ml 375 ml 1005 ml Exam Constitutional: alert Psych: No no complaints, No nl mood/affect, No anxiety, No confusion, No depression, No suicidal, No other Head: No normocephalic, No atraumatic, No lacerations, No hematomas, No other ENMT: No nl external ears & nose, No nl lips & teeth, No nl nasal mucosa & septum, No mucosa pink and moist, No intubated, No tympanic membranes, No other Respiratory: normal air movement Musculoskeletal: nl extremities to inspection, nl gait and stance Extremities: normal pulses Medications Medications Current Medications IV Flush (NS 3 ml) 3 ml PER PROTOCOL IV ; Start 02/25/18 at 22:00 Acetaminophen (Tylenol Tab) 650 mg Q6H PRN PO PAIN LEVEL 1-3 OR FEVER; Start 02/25/18 at 22:00 Albuterol/ Ipratropium (Duoneb) 3 ml Q2H RESP THERAPY PRN HHN SHORTNESS OF BREATH; Start 02/25/18 at 22:00 Oxycodone HCl (Roxicodone) 5 mg Q6H PRN PO PAIN Last administered on 02/27/18at 15:44; Admin Dose 5 MG; Start 02/25/18 at 22:00 Collagenase (Santyl) 1 applic DAILY TOP ; Start 02/26/18 at 09:00 Collagenase (Santyl) 1 applic PRN PRN TOP SOILING; Start 02/26/18 at 02:45 Metoclopramide HCl (Reglan) 5 mg Q4H PRN IV NAUSEA Last administered on 02/27/18at 10:00; Admin Dose 5 MG; Start 02/26/18 at 13:00 Potassium Chloride 10 meq/ Sodium Chloride 1,005 ml @ 75 mls/hr [id number] IV Last administered on 02/28/18at 00:39; Admin Dose 75 MLS/HR; Start 02/26/18 at 14:00 Ondansetron HCl 8 mg/Dextrose 54 ml @ 108 mls/hr Q6H PRN IV NAUSEA AND/OR VOMITING Last administered on 02/27/18at 13:02; Admin Dose 108 MLS/HR; Start 02/26/18 at 13:00 Loperamide HCl (Imodium Cap) 2 mg DAILY PRN PO DIARRHEA Last administered on 02/27/18at 13:02; Admin Dose 2 MG; Start 02/27/18 at 13:00 Filgrastim (Neupogen) 300 mcg DAILY@17 SC Last administered on 02/27/18at 17:59; Admin Dose 300 MCG; Start 02/27/18 at 17:00 Magnesium Sulfate 50 ml @ 25 mls/hr ONCE ONCE IVPB Last administered on 02/28/18at 10:49; Admin Dose 25 MLS/HR; Start 02/28/18 at 10:00; Stop 02/28/18 at 11:59 ROXANN ANDERSON Feb 28, 2018 11:43
[2018-02-28 14:00] VITALS: BP 119/66; PULSE 71; RESP 18
[2018-02-28] MEDS ORDERED: BARIUM SULF 2% 450 ML BTL (BERRY SMOOTHIE) PO ONE (15:00)
[2018-02-28] MEDS ORDERED: IOHEXOL 14.3 MG(I)/ML (ADULT) BTL PO ONE (16:00)
--- NOTE | 2018-02-28 16:45 | PN ---
Date/Time of Note Date/Time of Note DATE: 02/28/18 TIME: 16:43 Assessment/Plan VTE Prophylaxis Risk score (from Ns)>0 risk: 5 SCD applied (from Nsg): Yes Pharmacological prophylaxis: NA/contraindicated Pharm contraindication: low risk/ambulating Lines/Catheters IV Catheter Type (from Nrs): Saline Lock Urinary Cath still in place: No Assessment/Plan Assessment/Plan 52-year-old female with left breast invasive ductal carcinoma diagnosed in July of last year status post chemo, facial and lower extremity cellulitis, anemia, brain lesion (per MRI 08/16/17) status post treatment with Decadron who presented to ER complaining of generalized body ache, nausea/vomiting and weakness found to be hypokalemic and pancytopenic with severe anemia, hemoglobin of 6.2. # body pain/N/V - likely secondary to patient's cancer and recent chemotherapy -Continue IV fluids, antiemetics, pain control medications as needed - C diff negative for diarrhea. On loperamide. -Follow hematology oncology recommendations #Pancytopenia: Again likely significant recent chemotherapy as outpatient. Received PRBC transfusion 2 days ago with improvement in hemoglobin, but patient still with leukopenia. -Monitor CBC daily, follow hematology oncology recommendations -Per hematology oncology recognitions, start Neupogen 300 mcg daily -Replete low electrolytes -Imodium as needed for diarrhea, per hematology oncology rec's today #Invasive ductal breast carcinoma -Diagnosed July 2017 status post chemotherapy. Patient with brain lesion as noted on MRI in July of last year, not quite sure if this represents a metastasis. She was treated with Decadron at that time. -Monitor, follow-up recommendations from oncology consult #Renal insufficiency -Patient also has slightly elevated creatinine, which has been improving over the past 3 months. -IV fluids, monitor BUN/creatinine levels, consider nephrology consult as needed if not improved. Result Diagram: 02/28/18 0537 02/28/18 0537 Results 24hrs Laboratory Tests Test 02/28/18 05:37 White Blood Count 8.2 # Red Blood Count 2.62 L Hemoglobin 8.9 L Hematocrit 26.2 L Mean Corpuscular Volume 100.0 Mean Corpuscular Hemoglobin 34.0 H Mean Corpuscular Hemoglobin Concent 34.0 Red Cell Distribution Width 18.3 H Platelet Count 103 L Mean Platelet Volume 9.9 Immature Granulocytes % 1.500 H Neutrophils % Segmented Neutrophils % (Manual) 54 Band Neutrophils % (Manual) 16 H Lymphocytes % Lymphocytes % (Manual) 21 Monocytes % Monocytes % (Manual) 8 Eosinophils % Basophils % Metamyelocytes % (manual) 1 H Nucleated Red Blood Cells % 0.0 Immature Granulocytes # 0.120 H Neutrophils # Neutrophils # (Manual) 4.5 Band Neutrophils # 1.3 H Lymphocytes (Manual) 1.7 Lymphocytes # Monocytes # Monocytes # (Manual) 0.6 Eosinophils # Basophils # Metamyelocytes # 0.0 Nucleated Red Blood Cells # Platelet Estimate DECREASED Giant Platelets 8 H Polychromasia 1+ Anisocytosis 1+ Spherocytes 1+ Sodium Level 135 Potassium Level 3.7 Chloride Level 105 Carbon Dioxide Level 22 Anion Gap 8 Blood Urea Nitrogen 5 L Creatinine 1.08 H Est Glomerular Filtrat Rate mL/min 53 L Glucose Level 82 Calcium Level 8.7 Phosphorus Level 2.8 Magnesium Level 1.6 L Subjective 24 Hr Interval Summary Free Text/Dictation 1 episode of emesis and 4 episodes of diarrhea last night. Otherwise feeling well, no complaints. Exam/Review of Systems Vital Signs Vitals Vital Signs Date Temp Pulse Resp B/P (MAP) Pulse Ox O2 O2 Flow FiO2 Time Delivery Rate 02/28/18 98.7 71 18 119/66 100 Room Air 14:00 (83) Intake and Output 02/27/18 02/27/18 02/28/18 1515:00 23:00 07:00 IntakeIntake Total 708 ml 375 ml 1005 ml BalanceBalance 708 ml 375 ml 1005 ml Exam General: Lying in bed, no acute distress presently Head: Atraumatic Eyes: Normal Conjunctiva ENT: Normal External Ears, Nose and Mouth. Neck: Full range of motion. No meningismus. Resp: Clear to auscultation bilaterally Chest: R breast unremarkable. L breast with inflammatory change, skin sloughing throughout. Cardio: Regular rate and rhythm, no murmurs Abd: Soft, non tender, non distended. Normal bowel sounds Ext: No cyanosis, or edema Neur: No focal deficits Medications Medications Current Medications IV Flush (NS 3 ml) 3 ml PER PROTOCOL IV ; Start 02/25/18 at 22:00 Acetaminophen (Tylenol Tab) 650 mg Q6H PRN PO PAIN LEVEL 1-3 OR FEVER; Start 02/25/18 at 22:00 Albuterol/ Ipratropium (Duoneb) 3 ml Q2H RESP THERAPY PRN HHN SHORTNESS OF BREATH; Start 02/25/18 at 22:00 Oxycodone HCl (Roxicodone) 5 mg Q6H PRN PO PAIN Last administered on 02/27/18at 15:44; Admin Dose 5 MG; Start 02/25/18 at 22:00 Collagenase (Santyl) 1 applic DAILY TOP ; Start 02/26/18 at 09:00 Collagenase (Santyl) 1 applic PRN PRN TOP SOILING; Start 02/26/18 at 02:45 Metoclopramide HCl (Reglan) 5 mg Q4H PRN IV NAUSEA Last administered on 02/27/18at 10:00; Admin Dose 5 MG; Start 02/26/18 at 13:00 Potassium Chloride 10 meq/ Sodium Chloride 1,005 ml @ 75 mls/hr [id number] IV Last administered on 02/28/18at 16:08; Admin Dose 75 MLS/HR; Start 02/26/18 at 14:00 Ondansetron HCl 8 mg/Dextrose 54 ml @ 108 mls/hr Q6H PRN IV NAUSEA AND/OR VOMITING Last administered on 02/27/18 13:02; Admin Dose 108 MLS/HR; Start 02/26/18 at 13:00 Loperamide HCl (Imodium Cap) 2 mg DAILY PRN PO DIARRHEA Last administered on 02/27/18 13:02; Admin Dose 2 MG; Start 02/27/18 at 13:00 NGUYEN GONZALEZ MD Feb 28, 2018 16:45
[2018-02-28 20:00] VITALS: BP 122/70; PULSE 81; RESP 18
[2018-02-28] MEDS ORDERED: SOD CHLORIDE 0.9% 100 ML ONE (20:59)
[2018-02-28] MEDS ORDERED: IOHEXOL 300MG/ML 150 ML BTL ONE (20:59)
[2018-02-28] MEDS: oxyCODONE 5 MG TAB PO PRN (21:40)
[2018-03-01 02:00] VITALS: BP 110/65; PULSE 83; RESP 18
[2018-03-01] MEDS: POTASSIUM CHLORIDE 10 MEQ in SOD CHLORIDE 0.45% 1,000 ML IV SCH ×2 (05:10→20:52)
[2018-03-01 07:54] VITALS: BP 104/59; PULSE 75; RESP 16
[2018-03-01] MEDS: COLLAGENASE 5 GM (UD JAR) TOP SCH (08:20)
[2018-03-01] MEDS: oxyCODONE 5 MG TAB PO PRN ×2 (08:43→18:25)
[2018-03-01] MEDS ORDERED: LOPERAMIDE 2 MG CAP PO PRN (09:00)
--- NOTE | 2018-03-01 11:13 | CONS ---
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 who has completed brain XRT August 2017, followed by [facility] x 6 cycles completed 02/16 -stop GCSF -CT CAP now -discharge after diarrhea resolves, cont imodium -f/u with Dr Carrasquillo post scans for surgical planning -f/u with Dr Boss as per his rec [id number] min was spend in face to face time with patent and in coordination of her care.Patient seen in collaboration with Dr Vaughan Result Diagram: 02/28/1837 02/28/1837 Consultation Date/Type/Reason Admit Date/Time Feb 25, 2018 at 7:55 pm Initial Consult Date 02/26/18 Requesting Provider: JERZY TAYLOR 24 HR Interval Summary Free Text/Dictation nausea is better today still has diarrhea overall better than before no new issues reported overnight Constitutional: requiring IVF, requiring O2 Detailed Summary Eyes: pain ENT: no complaints Respiratory: no complaints Cardiovascular: no complaints Gastrointestinal: diarrhea, nausea Genitourinary: no complaints Musculoskeletal: no complaints Skin: no complaints Neurologic: no complaints Endocrine: no complaints Exam/Review of Systems Vital Signs Vitals Vital Signs Date Temp Pulse Resp B/P (MAP) Pulse Ox O2 O2 Flow FiO2 Time Delivery Rate 03/01/18 98.2 75 16 104/59 99 07:54 (74) 02/28/18 Room Air 14:00 Intake and Output 02/28/18 02/28/18 03/01/18 1515:00 23:00 07:00 IntakeIntake Total 830 ml 725 ml BalanceBalance 830 ml 725 ml Exam Constitutional: alert, oriented, well developed Psych: no complaints Head: atraumatic Eyes: nl conjunctiva, nl lids, nl sclera ENMT: nl external ears & nose Neck: non-tender Respiratory: clear to auscultation (bilaterally) Cardiovascular: nl pulses, other (s1s2) Gastrointestinal: soft, non-tender Musculoskeletal: nl extremities to inspection Extremities: normal pulses Neurological: nl mental status, nl speech Skin: nl turgor Medications Medications Current Medications IV Flush (NS 3 ml) 3 ml PER PROTOCOL IV ; Start 02/25/18 at 22:00 Acetaminophen (Tylenol Tab) 650 mg Q6H PRN PO PAIN LEVEL 1-3 OR FEVER; Start 02/25/18 at 22:00 Albuterol/ Ipratropium (Duoneb) 3 ml Q2H RESP THERAPY PRN HHN SHORTNESS OF BREATH; Start 02/25/18 at 22:00 Oxycodone HCl (Roxicodone) 5 mg Q6H PRN PO PAIN Last administered on 03/01/18at 08:43; Admin Dose 5 MG; Start 02/25/18 at 22:00 Collagenase (Santyl) 1 applic DAILY TOP ; Start 02/26/18 at 09:00 Collagenase (Santyl) 1 applic PRN PRN TOP SOILING; Start 02/26/18 at 02:45 Metoclopramide HCl (Reglan) 5 mg Q4H PRN IV NAUSEA Last administered on 02/27/18at 10:00; Admin Dose 5 MG; Start 02/26/18 at 13:00 Potassium Chloride 10 meq/ Sodium Chloride 1,005 ml @ 75 mls/hr [id number] IV Last administered on 03/01/18at 05:10; Admin Dose 75 MLS/HR; Start 02/26/18 at 14:00 Ondansetron HCl 8 mg/Dextrose 54 ml @ 108 mls/hr Q6H PRN IV NAUSEA AND/OR VOMITING Last administered on 02/27/18at 13:02; Admin Dose 108 MLS/HR; Start 02/26/18 at 13:00 Loperamide HCl (Imodium Cap) 2 mg Q4H PRN PO DIARRHEA; Start 03/01/18 at 09:00 JACKSON BERGERON Mar 01, 2018 11:13
[2018-03-01] MEDS: METOCLOPRAMIDE 10 MG INJ IV PRN (12:34)
[2018-03-01 14:45] VITALS: BP 111/68; PULSE 78; RESP 17
--- NOTE | 2018-03-01 15:22 | CONS ---
Date/Time of Note Date/Time of Note DATE: 03/01/18 TIME: 15:18 Assessment/Plan Assessment/Plan Assessment/Plan 52 yo with ER/NH negative, her 2 + stage IV breast ca (brain met) s/p XRT who has completed brain XRT August 2017, followed by [facility] x 6 cycles completed 02/16 -stop GCSF -CT CAP now -discharge after diarrhea resolves, cont imodium -f/u with Dr Carrasquillo post scans for surgical planning -f/u with Dr Boss as per his rec [id number] min was spend in face to face time with patent and in coordination of her care.Patient seen in collaboration with Dr Vaughan Result Diagram: 02/28/1837 02/28/1837 Consultation Date/Type/Reason Admit Date/Time Feb 25, 2018 at 7:55 pm Initial Consult Date 02/26/18 Type of Consult oncology Reason for Consultation BREAST CANCER Requesting Provider: JERZY TAYLOR 24 HR Interval Summary Free Text/Dictation - patient reported her nausea has improved - diarrhea is less now - Neupogen is dcd no new issues reported overnight Constitutional: requiring IVF Detailed Summary Eyes: no complaints ENT: no complaints Respiratory: no complaints Cardiovascular: no complaints Gastrointestinal: diarrhea Genitourinary: no complaints Musculoskeletal: no complaints Skin: no complaints Neurologic: no complaints Endocrine: no complaints Lymphatic: no complaints Exam/Review of Systems Vital Signs Vitals Vital Signs Date Temp Pulse Resp B/P (MAP) Pulse Ox O2 O2 Flow FiO2 Time Delivery Rate 03/01/18 97.9 78 17 111/68 100 14:45 (82) 02/28/18 Room Air 14:00 Intake and Output 02/28/18 02/28/18 03/01/18 1515:00 23:00 07:00 IntakeIntake Total 830 ml 725 ml BalanceBalance 830 ml 725 ml Exam Constitutional: alert, oriented, well developed Psych: nl mood/affect Head: normocephalic Eyes: EOMI, nl lids, nl sclera ENMT: nl external ears & nose Neck: non-tender Respiratory: diminished breath sounds Cardiovascular: regular rate and rhythm Gastrointestinal: soft, non-tender Musculoskeletal: nl extremities to inspection Extremities: normal pulses Neurological: nl mental status Skin: nl turgor Medications Medications Current Medications IV Flush (NS 3 ml) 3 ml PER PROTOCOL IV ; Start 02/25/18 at 22:00 Acetaminophen (Tylenol Tab) 650 mg Q6H PRN PO PAIN LEVEL 1-3 OR FEVER; Start 02/25/18 at 22:00 Albuterol/ Ipratropium (Duoneb) 3 ml Q2H RESP THERAPY PRN HHN SHORTNESS OF BREATH; Start 02/25/18 at 22:00 Oxycodone HCl (Roxicodone) 5 mg Q6H PRN PO PAIN Last administered on 03/01/18at 08:43; Admin Dose 5 MG; Start 02/25/18 at 22:00 Collagenase (Santyl) 1 applic DAILY TOP ; Start 02/26/18 at 09:00 Collagenase (Santyl) 1 applic PRN PRN TOP SOILING; Start 02/26/18 at 02:45 Metoclopramide HCl (Reglan) 5 mg Q4H PRN IV NAUSEA Last administered on 03/01/18at 12:34; Admin Dose 5 MG; Start 02/26/18 at 13:00 Potassium Chloride 10 meq/ Sodium Chloride 1,005 ml @ 75 mls/hr [id number] IV Last administered on 03/01/18at 05:10; Admin Dose 75 MLS/HR; Start 02/26/18 at 14:00 Ondansetron HCl 8 mg/Dextrose 54 ml @ 108 mls/hr Q6H PRN IV NAUSEA AND/OR VOMITING Last administered on 02/27/18at 13:02; Admin Dose 108 MLS/HR; Start 02/26/18 at 13:00 Loperamide HCl (Imodium Cap) 2 mg Q4H PRN PO DIARRHEA Last administered on 03/01/18at 12:35; Admin Dose 2 MG; Start 03/01/18 at 09:00 JACKSON BERGERON Mar 01, 2018 3:22 pm
--- NOTE | 2018-03-01 17:52 | PN ---
Date/Time of Note Date/Time of Note DATE: 03/01/18 TIME: 17:49 Assessment/Plan VTE Prophylaxis Risk score (from Ns)>0 risk: 5 SCD applied (from Ns): Yes Pharmacological prophylaxis: NA/contraindicated Pharm contraindication: low risk/ambulating Lines/Catheters IV Catheter Type (from Rustg): Saline Lock Urinary Cath still in place: No Assessment/Plan Assessment/Plan 52-year-old female with left breast invasive ductal carcinoma diagnosed in July of last year status post chemo, facial and lower extremity cellulitis, anemia, brain lesion (per MRI 08/16/17) status post treatment with Decadron who presented to ER complaining of generalized body ache, nausea/vomiting and weakness found to be hypokalemic and pancytopenic with severe anemia, hemoglobin of 6.2. # body pain/N/V - likely secondary to patient's cancer and recent chemotherapy -Continue IV fluids, antiemetics, pain control medications as needed - C diff negative for diarrhea. On loperamide. -Follow hematology oncology recommendations #Pancytopenia: Again likely significant recent chemotherapy as outpatient. Received PRBC transfusion 2 days ago with improvement in hemoglobin, but patient still with leukopenia. -Monitor CBC daily, follow hematology oncology recommendations -Per hematology oncology recognitions, start Neupogen 300 mcg daily -Replete low electrolytes -Imodium as needed for diarrhea, per hematology oncology rec's today #Invasive ductal breast carcinoma -Diagnosed July 2017 status post chemotherapy. Patient with brain lesion as noted on MRI in July of last year, not quite sure if this represents a metastasis. She was treated with Decadron at that time. -Monitor, follow-up recommendations from oncology consult #Renal insufficiency -Patient also has slightly elevated creatinine, which has been improving over the past 3 months. -IV fluids, monitor BUN/creatinine levels, consider nephrology consult as needed if not improved. DVT: SCDs GI: None Dispo: PO intolerance. When able to keep food down and diarrhea resolves will discharge home. Result Diagram: 02/28/18 0537 02/28/18 0537 Subjective 24 Hr Interval Summary Free Text/Dictation More watery diarrhea last night. Had large volume emesis soon after breakfast this morning. Exam/Review of Systems Vital Signs Vitals Vital Signs Date Temp Pulse Resp B/P (MAP) Pulse Ox O2 O2 Flow FiO2 Time Delivery Rate 03/01/18 97.9 78 17 111/68 100 14:45 (82) 02/28/18 Room Air 14:00 Intake and Output 02/28/18 02/28/18 03/01/18 1515:00 23:00 07:00 IntakeIntake Total 830 ml 725 ml BalanceBalance 830 ml 725 ml Exam General: Lying in bed, no acute distress presently Head: Atraumatic Eyes: Normal Conjunctiva ENT: Normal External Ears, Nose and Mouth. Neck: Full range of motion. No meningismus. Resp: Clear to auscultation bilaterally Chest: R breast unremarkable. L breast with inflammatory change, skin sloughing throughout. Cardio: Regular rate and rhythm, no murmurs Abd: Soft, non tender, non distended. Normal bowel sounds Ext: No cyanosis, or edema Neur: No focal deficits Medications Medications Current Medications IV Flush (NS 3 ml) 3 ml PER PROTOCOL IV ; Start 02/25/18 at 22:00 Acetaminophen (Tylenol Tab) 650 mg Q6H PRN PO PAIN LEVEL 1-3 OR FEVER; Start 02/25/18 at 22:00 Albuterol/ Ipratropium (Duoneb) 3 ml Q2H RESP THERAPY PRN HHN SHORTNESS OF BREATH; Start 02/25/18 at 22:00 Oxycodone HCl (Roxicodone) 5 mg Q6H PRN PO PAIN Last administered on 03/01/18at 08:43; Admin Dose 5 MG; Start 02/25/18 at 22:00 Collagenase (Santyl) 1 applic DAILY TOP ; Start 02/26/18 at 09:00 Collagenase (Santyl) 1 applic PRN PRN TOP SOILING; Start 02/26/18 at 02:45 Metoclopramide HCl (Reglan) 5 mg Q4H PRN IV NAUSEA Last administered on at 12:34; Admin Dose 5 MG; Start 02/26/18 at 13:00 Potassium Chloride 10 meq/ Sodium Chloride 1,005 ml @ 75 mls/hr [id number] IV Last administered on 03/01/18at 05:10; Admin Dose 75 MLS/HR; Start 02/26/18 at 14:00 Ondansetron HCl 8 mg/Dextrose 54 ml @ 108 mls/hr Q6H PRN IV NAUSEA AND/OR VOMITING Last administered on 02/27/18at 13:02; Admin Dose 108 MLS/HR; Start 02/26/18 at 13:00 Loperamide HCl (Imodium Cap) 2 mg Q4H PRN PO DIARRHEA Last administered on 03/01/18at 12:35; Admin Dose 2 MG; Start 03/01/18 at 09:00 NGUYEN GONZALEZ MD Mar 01, 2018 17:52
[2018-03-01 20:07] VITALS: BP 111/59; PULSE 83; RESP 18
[2018-03-02 02:20] VITALS: BP 113/65; PULSE 75; RESP 18
[2018-03-02] MEDS: COLLAGENASE 5 GM (UD JAR) TOP SCH (07:46)
[2018-03-02] MEDS ORDERED: POTASSIUM CHLORIDE 20 MEQ POWDER FOR ORAL SOLN PO ONE (08:00)
[2018-03-02] MEDS ORDERED: MAGNESIUM SULFATE 4 GM/100 ML 100 ML IVPB ONE (08:00)
[2018-03-02] MEDS ORDERED: POTASSIUM CHLORIDE 100 ML IVPB ONE (08:00)
[2018-03-02 08:01] VITALS: BP 110/73; PULSE 73; RESP 19
[2018-03-02] MEDS: oxyCODONE 5 MG TAB PO PRN (09:50)
[2018-03-02] MEDS: POTASSIUM CHLORIDE 10 MEQ in SOD CHLORIDE 0.45% 1,000 ML IV SCH (11:48)
--- NOTE | 2018-03-02 13:17 | CONS ---
Date/Time of Note Date/Time of Note DATE: 03/02/18 TIME: 13:16 Assessment/Plan Assessment/Plan Hospital Course 52 yo with ER/NH negative, her 2 + stage IV breast ca (brain met) s/p XRT who has completed brain XRT August 2017, followed by [facility] x 6 cycles completed 02/16 -no longer neutropenic -CT chest with contrast -ok for discharge from onc perspective -f/u in my office next week for continuation of herceptin and perjeta -f/u with Dr Carrasquillo post scans for surgical planning -f/u with Dr Boss as per his rec Result Diagram: 03/02/18 0556 03/02/18 0556 Results 24hrs Laboratory Tests Test 03/02/18 05:56 White Blood Count 8.2 Red Blood Count 2.32 L Hemoglobin 7.8 L Hematocrit 23.4 L Mean Corpuscular Volume 100.9 Mean Corpuscular Hemoglobin 33.6 H Mean Corpuscular Hemoglobin Concent 33.3 Red Cell Distribution Width 18.9 H Platelet Count 105 L Mean Platelet Volume 9.6 Immature Granulocytes % 1.000 H Neutrophils % Segmented Neutrophils % (Manual) 72 Band Neutrophils % (Manual) 3 Lymphocytes % Lymphocytes % (Manual) 18 Monocytes % Monocytes % (Manual) 7 Eosinophils % Basophils % Nucleated Red Blood Cells % 0.0 Immature Granulocytes # 0.080 H Neutrophils # Neutrophils # (Manual) 5.9 Band Neutrophils # 0.2 Lymphocytes (Manual) 1.4 Lymphocytes # Monocytes # Monocytes # (Manual) 0.5 Eosinophils # Basophils # Nucleated Red Blood Cells # Platelet Estimate DECREASED Giant Platelets 3 H Polychromasia 1+ Anisocytosis 1+ Microcytosis 1+ Ovalocytes 1+ Sodium Level 138 Potassium Level 3.0 L Chloride Level 109 Carbon Dioxide Level 25 Anion Gap 4 L Blood Urea Nitrogen 5 L Creatinine 1.03 H Est Glomerular Filtrat Rate mL/min 56 L Glucose Level 82 Calcium Level 8.4 Phosphorus Level 3.1 Magnesium Level 1.3 L Consultation Date/Type/Reason Admit Date/Time Feb 25, 2018 at 19:55 Initial Consult Date 02/26/18 Requesting Provider: JERZY TAYLOR 24 HR Interval Summary Free Text/Dictation had CT AP with contrast which shows no evidence of disease no longer neutropenic diarrhea resolved Exam/Review of Systems Vital Signs Vitals Vital Signs Date Temp Pulse Resp B/P (MAP) Pulse Ox O2 O2 Flow FiO2 Time Delivery Rate 03/02/18 98.2 73 19 110/73 99 08:01 (85) 02/28/18 Room Air 14:00 Intake and Output 03/01/18 03/01/18 03/02/18 1515:00 23:00 07:00 IntakeIntake Total 1405 ml 940 ml BalanceBalance 1405 ml 940 ml Exam Constitutional: alert, oriented, well developed Psych: no complaints, nl mood/affect Head: normocephalic, atraumatic Extremities: normal pulses Neurological: nl mental status Medications Medications Current Medications IV Flush (NS 3 ml) 3 ml PER PROTOCOL IV ; Start 02/25/18 at 22:00 Acetaminophen (Tylenol Tab) 650 mg Q6H PRN PO PAIN LEVEL 1-3 OR FEVER; Start 02/25/18 at 22:00 Albuterol/ Ipratropium (Duoneb) 3 ml Q2H RESP THERAPY PRN HHN SHORTNESS OF BREATH; Start 02/25/18 at 22:00 Oxycodone HCl (Roxicodone) 5 mg Q6H PRN PO PAIN Last administered on 03/02/18at 09:50; Admin Dose 5 MG; Start 02/25/18 at 22:00 Collagenase (Santyl) 1 applic DAILY TOP ; Start 02/26/18 at 09:00 Collagenase (Santyl) 1 applic PRN PRN TOP SOILING; Start 02/26/18 at 02:45 Metoclopramide HCl (Reglan) 5 mg Q4H PRN IV NAUSEA Last administered on 03/01/18at 12:34; Admin Dose 5 MG; Start 02/26/18 at 13:00 Potassium Chloride 10 meq/ Sodium Chloride 1,005 ml @ 75 mls/hr [id number] IV Last administered on 03/01/18at 20:52; Admin Dose 75 MLS/HR; Start 02/26/18 at 14:00 Ondansetron HCl 8 mg/Dextrose 54 ml @ 108 mls/hr Q6H PRN IV NAUSEA AND/OR VOMITING Last administered on 02/27/18at 13:02; Admin Dose 108 MLS/HR; Start 02/26/18 at 13:00 Loperamide HCl (Imodium Cap) 2 mg Q4H PRN PO DIARRHEA Last administered on 03/01/18at 12:35; Admin Dose 2 MG; Start 03/01/18 at 09:00 ROXANN ANDERSON Mar 02, 2018 13:17
--- NOTE | 2018-03-02 13:42 | PN ---
Date/Time of Note Date/Time of Note DATE: 03/02/18 TIME: 13:39 Assessment/Plan VTE Prophylaxis Risk score (from Ns)>0 risk: 5 SCD applied (from Nsg): Yes Pharmacological prophylaxis: NA/contraindicated Pharm contraindication: low risk/ambulating Lines/Catheters IV Catheter Type (from Nrsg): Peripheral IV Urinary Cath still in place: No Assessment/Plan Assessment/Plan 52-year-old female with left breast invasive ductal carcinoma diagnosed in July of last year status post chemo, facial and lower extremity cellulitis, anemia, brain lesion (per MRI 08/16/17) status post treatment with Decadron who presented to ER complaining of generalized body ache, nausea/vomiting and weakness found to be hypokalemic and pancytopenic with severe anemia, hemoglobin of 6.2. # body pain/N/V - likely secondary to patient's cancer and recent chemotherapy -Continue IV fluids, antiemetics, pain control medications as needed - C diff negative for diarrhea. On loperamide. -Follow hematology oncology recommendations #Pancytopenia: Again likely significant recent chemotherapy as outpatient. Received PRBC transfusion 2 days ago with improvement in hemoglobin, but patient still with leukopenia. -Monitor CBC daily, follow hematology oncology recommendations -Per hematology oncology recognitions, start Neupogen 300 mcg daily -Replete low electrolytes -Imodium as needed for diarrhea, per hematology oncology rec's today #Invasive ductal breast carcinoma -Diagnosed July 2017 status post chemotherapy. Patient with brain lesion as noted on MRI in July of last year, not quite sure if this represents a metastasis. She was treated with Decadron at that time. -Monitor, follow-up recommendations from oncology consult #Renal insufficiency - resolved DVT: SCDs GI: None Dispo: Still fatigued and with diarrhea, resolving. Anticipate discharge tomorrow () Result Diagram: 03/02/18 0556 03/02/18 0556 Results 24hrs Laboratory Tests Test 03/02/18 05:56 White Blood Count 8.2 Red Blood Count 2.32 L Hemoglobin 7.8 L Hematocrit 23.4 L Mean Corpuscular Volume 100.9 Mean Corpuscular Hemoglobin 33.6 H Mean Corpuscular Hemoglobin Concent 33.3 Red Cell Distribution Width 18.9 H Platelet Count 105 L Mean Platelet Volume 9.6 Immature Granulocytes % 1.000 H Neutrophils % Segmented Neutrophils % (Manual) 72 Band Neutrophils % (Manual) 3 Lymphocytes % Lymphocytes % (Manual) 18 Monocytes % Monocytes % (Manual) 7 Eosinophils % Basophils % Nucleated Red Blood Cells % 0.0 Immature Granulocytes # 0.080 H Neutrophils # Neutrophils # (Manual) 5.9 Band Neutrophils # 0.2 Lymphocytes (Manual) 1.4 Lymphocytes # Monocytes # Monocytes # (Manual) 0.5 Eosinophils # Basophils # Nucleated Red Blood Cells # Platelet Estimate DECREASED Giant Platelets 3 H Polychromasia 1+ Anisocytosis 1+ Microcytosis 1+ Ovalocytes 1+ Sodium Level 138 Potassium Level 3.0 L Chloride Level 109 Carbon Dioxide Level 25 Anion Gap 4 L Blood Urea Nitrogen 5 L Creatinine 1.03 H Est Glomerular Filtrat Rate mL/min 56 L Glucose Level 82 Calcium Level 8.4 Phosphorus Level 3.1 Magnesium Level 1.3 L Subjective 24 Hr Interval Summary Free Text/Dictation No acute overnight events. Patient ate breakfast today with no emesis. Still has diarrhea but no longer liquid, now starting to be formed. Feels greatly improved. Exam/Review of Systems Vital Signs Vitals Vital Signs Date Temp Pulse Resp B/P (MAP) Pulse Ox O2 O2 Flow FiO2 Time Delivery Rate 03/02/18 98.2 73 19 110/73 99 08:01 (85) 02/28/18 Room Air 14:00 Intake and Output 03/01/18 03/01/18 03/02/18 1515:00 23:00 07:00 IntakeIntake Total 1405 ml 940 ml BalanceBalance 1405 ml 940 ml Exam General: Lying in bed, no acute distress presently Head: Atraumatic Eyes: Normal Conjunctiva ENT: Normal External Ears, Nose and Mouth. Neck: Full range of motion. No meningismus. Resp: Clear to auscultation bilaterally Chest: R breast unremarkable. L breast with inflammatory change, skin sloughing throughout. Cardio: Regular rate and rhythm, no murmurs Abd: Soft, non tender, non distended. Normal bowel sounds Ext: No cyanosis, or edema Medications Medications Current Medications IV Flush (NS 3 ml) 3 ml PER PROTOCOL IV ; Start 02/25/18 at 22:00 Acetaminophen (Tylenol Tab) 650 mg Q6H PRN PO PAIN LEVEL 1-3 OR FEVER; Start 02/25/18 at 22:00 Albuterol/ Ipratropium (Duoneb) 3 ml Q2H RESP THERAPY PRN HHN SHORTNESS OF BREATH; Start 02/25/18 at 22:00 Oxycodone HCl (Roxicodone) 5 mg Q6H PRN PO PAIN Last administered on 03/02/18at 09:50; Admin Dose 5 MG; Start 02/25/18 at 22:00 Collagenase (Santyl) 1 applic DAILY TOP ; Start 02/26/18 at 09:00 Collagenase (Santyl) 1 applic PRN PRN TOP SOILING; Start 02/26/18 at 02:45 Metoclopramide HCl (Reglan) 5 mg Q4H PRN IV NAUSEA Last administered on 03/01/18at 12:34; Admin Dose 5 MG; Start 02/26/18 at 13:00 Potassium Chloride 10 meq/ Sodium Chloride 1,005 ml @ 75 mls/hr [id number] IV Last administered on 03/01/18at 20:52; Admin Dose 75 MLS/HR; Start 02/26/18 at 14:00 Ondansetron HCl 8 mg/Dextrose 54 ml @ 108 mls/hr Q6H PRN IV NAUSEA AND/OR VOMITING Last administered on 02/27/18at 13:02; Admin Dose 108 MLS/HR; Start 02/26/18 at 13:00 Loperamide HCl (Imodium Cap) 2 mg Q4H PRN PO DIARRHEA Last administered on 03/01/18at 12:35; Admin Dose 2 MG; Start 03/01/18 at 09:00 NGUYEN GONZALEZ MD Mar 02, 2018 13:42
[2018-03-02 14:20] VITALS: BP 140/79; PULSE 87; RESP 18
[2018-03-02] MEDS ORDERED: SOD CHLORIDE 0.9% 100 ML ONE (18:52)
[2018-03-02] MEDS ORDERED: IOHEXOL 300MG/ML 150 ML BTL ONE (18:52)
[2018-03-02 20:41] VITALS: BP 149/79; PULSE 78; RESP 20
[2018-03-03 02:16] VITALS: BP 98/53; PULSE 82; RESP 18
[2018-03-03 07:56] VITALS: BP 115/75; PULSE 76; RESP 18
[2018-03-03] MEDS ORDERED: POTASSIUM CHLORIDE 20 MEQ POWDER FOR ORAL SOLN PO ONE (09:00)
[2018-03-03] MEDS: COLLAGENASE 5 GM (UD JAR) TOP SCH (09:00)
[2018-03-03] MEDS ORDERED: MAGNESIUM SULFATE 2 GM/50 ML 50 ML IVPB ONE (10:00)
--- NOTE | 2018-03-03 10:31 | PDOCDIS ---
Discharge Instructions DIAGNOSIS Discharge Diagnosis Breast cancer, neutropenia CONDITION [id number] Patient Condition: [id number] Fair HOME CARE INSTRUCTIONS: [id number] Diet Instructions: [id number] Regular [id number] Special Diet: [id number] regular ACTIVITY: Ptezq5Mg Activity Restrictions: [id number] No Restrictions FOLLOW UP/APPOINTMENTS Follow-up Plan 1. See Dr. Arthur as scheduled 2. Take all medications as prescribed. NGUYEN GONZALEZ MD Mar 03, 2018 10:31
[2018-03-03] MEDS ORDERED: LOPE-123 PO (10:32)
--- NOTE | 2018-03-03 12:11 | CONS ---
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 who has completed brain XRT August 2017, followed by [facility] x 6 cycles completed 02/16 -no longer neutropenic- wbc 4.5 -CT chest with contrast -ok for discharge from onc perspective -f/u in my office next week for continuation of herceptin and perjeta -f/u with Dr Carrasquillo post scans for surgical planning -f/u with Dr Boss as per his rec Going home today A total of 40 minutes of face to face time was spent speaking with the patient , of which greater than 50% was spent in counseling coordination of care and the detailed question and answer session.Patient seen in collaboration with Dr Vaughan Result Diagram: 03/03/18 0454 03/03/18 0454 Results 24hrs Laboratory Tests Test 03/03/18 04:54 White Blood Count 4.5 #L Red Blood Count 2.38 L Hemoglobin 8.1 L Hematocrit 24.1 L Mean Corpuscular Volume 101.3 H Mean Corpuscular Hemoglobin 34.0 H Mean Corpuscular Hemoglobin Concent 33.6 Red Cell Distribution Width 19.0 H Platelet Count 102 L Mean Platelet Volume 8.9 Immature Granulocytes % 1.100 H Neutrophils % 52.6 Lymphocytes % 30.9 Monocytes % 15.2 H Eosinophils % 0.0 Basophils % 0.2 Nucleated Red Blood Cells % 0.0 Immature Granulocytes # 0.050 H Neutrophils # 2.4 Lymphocytes # 1.4 Monocytes # 0.7 Eosinophils # 0.0 Basophils # 0.0 Nucleated Red Blood Cells # 0.0 Sodium Level 140 Potassium Level 3.4 L Chloride Level 108 Carbon Dioxide Level 26 Anion Gap 6 Blood Urea Nitrogen 9 Creatinine 1.05 H Est Glomerular Filtrat Rate mL/min 55 L Glucose Level 88 Calcium Level 8.8 Consultation Date/Type/Reason Admit Date/Time Feb 25, 2018 at 19:55 Initial Consult Date 02/26/18 Type of Consult oncology Reason for Consultation BREAST CANCER Requesting Provider: JERZY TAYLOR 24 HR Interval Summary Free Text/Dictation having lunch denies any nausea/ diarrhea - feels bettter ready to go home no new issues reported last night Constitutional: improved Detailed Summary Eyes: no complaints ENT: no complaints Respiratory: no complaints Cardiovascular: no complaints Gastrointestinal: no complaints Genitourinary: no complaints Musculoskeletal: no complaints Skin: no complaints Neurologic: no complaints Endocrine: no complaints Lymphatic: no complaints Psychological: nl mood/affect Immunologic: no complaints Exam/Review of Systems Vital Signs Vitals Vital Signs Date Temp Pulse Resp B/P (MAP) Pulse Ox O2 O2 Flow FiO2 Time Delivery Rate 03/03/18 98.2 76 18 115/75 99 Room Air 07:56 (88) Intake and Output 03/02/18 03/02/18 03/03/18 1515:00 23:00 07:00 IntakeIntake Total 830 ml 440 ml 240 ml BalanceBalance 830 ml 440 ml 240 ml Exam Constitutional: alert, well developed Psych: nl mood/affect Head: atraumatic Eyes: EOMI Respiratory: diminished breath sounds (bilaterally) Cardiovascular: nl pulses, other (s1s2) Gastrointestinal: soft, non-tender Musculoskeletal: nl extremities to inspection Extremities: normal pulses Neurological: nl mental status, nl speech Skin: nl turgor Lymph: nontender Medications Medications Current Medications IV Flush (NS 3 ml) 3 ml PER PROTOCOL IV ; Start 02/25/18 at 22:00 Acetaminophen (Tylenol Tab) 650 mg Q6H PRN PO PAIN LEVEL 1-3 OR FEVER; Start 02/25/18 at 22:00 Albuterol/ Ipratropium (Duoneb) 3 ml Q2H RESP THERAPY PRN HHN SHORTNESS OF BREATH; Start 02/25/18 at 22:00 Oxycodone HCl (Roxicodone) 5 mg Q6H PRN PO PAIN Last administered on 03/02/18at 09:50; Admin Dose 5 MG; Start 02/25/18 at 22:00 Collagenase (Santyl) 1 applic DAILY TOP ; Start 02/26/18 at 09:00 Collagenase (Santyl) 1 applic PRN PRN TOP SOILING; Start 02/26/18 at 02:45 Metoclopramide HCl (Reglan) 5 mg Q4H PRN IV NAUSEA Last administered on 03/01/18at 12:34; Admin Dose 5 MG; Start 02/26/18 at 13:00 Ondansetron HCl 8 mg/Dextrose 54 ml @ 108 mls/hr Q6H PRN IV NAUSEA AND/OR VOMITING Last administered on 02/27/18at 13:02; Admin Dose 108 MLS/HR; Start 02/26/18 at 13:00 Loperamide HCl (Imodium Cap) 2 mg Q4H PRN PO DIARRHEA Last administered on 03/01/18at 12:35; Admin Dose 2 MG; Start 03/01/18 at 09:00 JACKSON BERGERON Mar 03, 2018 12:11
[2018-03-03 14:50] VITALS: BP 143/70; PULSE 95; RESP 18
--- NOTE | 2018-03-03 16:56 | DS ---
Date/Time of Note Date/Time of Note DATE: 03/03/18 TIME: 16:54 Discharge Summary Admission/Discharge Info Admit Date/Time Feb 25, 2018 at 19:55 Discharge Date/Time Mar 03, 2018 at 16:20 Discharge Diagnosis Breast cancer, neutropenia Patient Condition: Fair Consults Oncology Procedures None Hx of Present Illness 52-year-old female with left breast invasive ductal carcinoma diagnosed in July of last year status post chemo, facial and lower extremity cellulitis, anemia, brain lesion (per MRI 08/16/17) status post treatment with Decadron who presented to ER complaining of generalized body ache, nausea/vomiting and weakness found to be hypokalemic and pancytopenic with severe anemia, hemoglobin of 6.2. Hospital Course The patient was transfused up to goal Hgb >7, and Hgb did not drop over hospital course. Stool C diff was sent, which was negative. She did continue to have vomiting and diarrhea over the next several days, which was managed symptomatically. By the time of discharge symptoms had resolved and she was tolerating PO diet. She had run out of her oxycodone which she takes for chronic L breast cancer pain. I prescribed oxycodone 5mg #45 tabs. Home Meds Active Scripts Loperamide Hcl* (Loperamide Hcl*) 2 Mg Cap, 2 MG PO Q4H PRN for DIARRHEA, #14 CAP Prov:NGUYEN GONZALEZ MD 03/03/18 Ondansetron Hcl* (Zofran*) 4 Mg Tab, 4 MG PO Q6H PRN for NAUSEA AND OR VOMITING, #60 TAB Prov:BEBA CASTRO 10/23/17 Reported Medications Oxycodone Hcl* (IR) (Roxicodone*) 5 Mg Tab, 5 MG PO Q6H PRN for PAIN, TAB 02/25/18 Discontinued Scripts Doxycycline Monohydrate* (Doxycycline Monohydrate*) 100 Mg Tablet, 100 MG PO BID for 10 Days, #20 TAB Prov:ELVIA MEAD 11/29/17 Mupirocin* (Bactroban*) 2% -22 Gram Oint...g., 1 APPLIC TOP BID for 10 Days, #14 1 Refill Apply as directed Prov:MELIA WHITE MD 11/28/17 Magnesium Oxide* (Mag-Oxide*) 400 Mg Tablet, 400 MG PO BID for 7 Days, #14 TAB Prov:MELIA WHITE MD 11/28/17 Lactobacillus Rhamnosus GG (Culturelle) 1 Each Capsule, 1 CAP PO BID for 10 Days, #20 CAP otc Prov:MELIA WHITE MD 11/28/17 Acetaminophen (MAPAP) 325 Mg Tablet, 650 MG PO Q6H PRN for PAIN LEVEL 1-3 OR FEVER for 1 Day, TAB Prov:MELIA WHITE MD 11/28/17 Nifedipine (Procardia Xl) 60 Mg Tab.er.24, 60 MG PO DAILY for 14 Days, #14 TAB Prov:MELIA WHITE MD 11/28/17 Morphine Sulfate (Morphine Sulfate ER) 30 Mg Tablet.er, 30 MG PO Q12H, #30 TAB Prov:NGUYEN GONZALEZ MD 10/31/17 Megestrol Acetate (Megestrol Acetate) 400 Mg/10 Ml Oral.susp, 400 MG PO BID, #60 TAB Prov:NGUYEN GONZALEZ MD 10/31/17 Hydrocodone Bit-Acetaminophen (Hydrocodone Bit-Acetaminophen) 10-300 Mg Tablet, 1 TAB PO Q6H PRN for PAIN, #30 TAB Prov:NGUYEN GONZALEZ MD 10/31/17 Loperamide Hcl* (Loperamide Hcl*) 2 Mg Cap, 2 MG PO QID PRN for DIARRHEA, #60 CAP Prov:BEBA CASTRO 10/23/17 Follow-up Plan 1. See Dr. Arthur as scheduled 2. Take all medications as prescribed. Primary Care Provider [place] Time spent on discharge: > 30 minutes Pending Labs Laboratory Tests Test 03/03/18 04:54 White Blood Count 4.5 10^3/ul (4.8-10.8) Red Blood Count 2.38 10^6/ul (4.20-5.40) Hemoglobin 8.1 g/dl (12.0-16.0) Hematocrit 24.1 % (37.0-47.0) Mean Corpuscular Volume 101.3 fl (82.0-101.0) Mean Corpuscular Hemoglobin 34.0 pg (29.0-33.0) Mean Corpuscular Hemoglobin Concent 33.6 g/dl (32.0-37.0) Red Cell Distribution Width 19.0 % (11.5-14.5) Platelet Count 102 10^3/UL (140-415) Mean Platelet Volume 8.9 fl (7.4-10.4) Immature Granulocytes % 1.100 % (0.001-0.429) Neutrophils % 52.6 % (39.0-77.0) Lymphocytes % 30.9 % (15.0-51.0) Monocytes % 15.2 % (0.0-11.0) Eosinophils % 0.0 % (0.0-7.0) Basophils % 0.2 % (0.0-2.0) Nucleated Red Blood Cells % 0.0 /100WBC (0.0-0.0) Immature Granulocytes # 0.050 10^3/ul (0.0-0.031) Neutrophils # 2.4 10^3/ul (1.6-7.5) Lymphocytes # 1.4 10^3/ul (0.8-2.9) Monocytes # 0.7 10^3/ul (0.3-0.9) Eosinophils # 0.0 10^3/ul (0.0-0.5) Basophils # 0.0 10^3/ul (0.0-0.1) Nucleated Red Blood Cells # 0.0 10^3/ul (0.0-0.0) Sodium Level 140 mmol/L (135-144) Potassium Level 3.4 mmol/L (3.5-5.1) Chloride Level 108 mmol/L (97-110) Carbon Dioxide Level 26 mmol/L (21-31) Anion Gap 6 (5-13) Blood Urea Nitrogen 9 mg/dl (7-20) Creatinine 1.05 mg/dl (0.44-1.00) Est Glomerular Filtrat Rate mL/min 55 mL/min (>60) Glucose Level 88 mg/dl (70-220) Calcium Level 8.8 mg/dl (8.4-10.2) NGUYEN GONZALEZ MD Mar 03, 2018 16:56
== END 2018-03-03 16:20 | disposition home or self-care (01) | DRG 809 ==
LOC: E/R 15:26 → PP2 19:55
PROVIDERS: ADMIT Internal Medicine; ATTEND Internal Medicine
PROC: 30233N1 Transfusion of Nonautologous Red Blood Cells into Peripheral Vein, Percutaneous Approach (ICD-10-PCS; principal; 2018-02-25)
DX: D70.1 Agranulocytosis secondary to cancer chemotherapy (principal); N17.9 Acute kidney failure, unspecified; C71.9 Malignant neoplasm of brain, unspecified; C50.919 Malignant neoplasm of unspecified site of unspecified female breast; Z17.0 Estrogen receptor positive status [ER+]; R19.7 Diarrhea, unspecified; E87.6 Hypokalemia
CPT/HCPCS: 36415; 36430; 71045; 71260; 74177; 80048; 80053; 83605; 83690; 83735; 84100; 84484; 85025; 86850; 86900; 86901; 86920; 87075; 93005; 96374; 96375; 97162; J1170; J2405; J2765; J3475; J3480; J7030; J7040; P9016; Q9967

== ENCOUNTER 2018-05-23 09:00 | Inpatient (IN) | payer MEDICAID, OTHER ==
[~2018-05-23] VITALS: Ht 152.4 cm; Wt 62.6 kg
[~2018-05-23 09:00] MED LIST changes: -ACET325T40 PO; +BENA20TA4 PO; -DOXY100T21 PO; -HYDR-2457 PO; +HYDR12.58 PO; -LACT1CAP28 PO; -MAGN400T27 PO; -MEGE400O4 PO; -MORP30TA3 PO; -MUPI22OI2 TOP; -NIFE60TA2 PO; +OXYC-481 PO
[2018-09-21] VITALS (34 sets, daily range): BP systolic 128–178; BP diastolic 68–111; PULSE 72–100; RESP 10–20
[2018-09-21] MEDS ORDERED: LACTATED RINGER'S 1,000 ML IV ONE (06:00)
[2018-09-21] MEDS ORDERED: CEFAZOLIN 2 GM/50 ML (PMX) 50 ML IVPB SCH (06:00)
[2018-09-21] MEDS ORDERED: GENTAMICIN 160 MG in DEXTROSE 5% 100 ML IVPB SCH (06:00)
[2018-09-21] MEDS ORDERED: GENTAMICIN 80 MG INJ ONE (07:11)
[2018-09-21] MEDS ORDERED: POLYMYXIN/BACITRACIN 1L IRRIG ONE (07:11)
--- NOTE | 2018-09-21 07:22 | PREAC ---
Date/Time of Note Date/Time of Note DATE: 09/21/18 TIME: 07:21 Anesthesia Eval and Record Evaluation Time Pre-Procedure Interview DATE: 09/21/18 TIME: 07:21 Age 52 Sex female NPO: 8 hrs Preoperative diagnosis left breast cancer Planned procedure left modified radical mastectomy immediate left chest wall reconstruction using flap and skin graft Past Medical History Past Medical History: Includes Cardio: HTN Surgery & Anesthesia Issues No known issue Meds Anticoagulation: No Beta Kaushik within 24 hr: No Reason Beta Kaushik not given: Pt. not on B-Kaushik Reported Medications Benazepril Hcl* (Benazepril Hcl*) 20 Mg Tablet, 20 MG PO DAILY, #30 TAB 09/21/18 Hydrochlorothiazide* (Hydrochlorothiazide*) 12.5 Mg Tablet, 12.5 MG PO DAILY, #30 TAB 09/21/18 Discontinued Reported Medications Oxycodone Hcl* (IR) (Roxicodone*) 5 Mg Tab, 5 MG PO Q6H PRN for PAIN, TAB 02/25/18 Discontinued Scripts Loperamide Hcl* (Loperamide Hcl*) 2 Mg Cap, 2 MG PO Q4H PRN for DIARRHEA, #14 CAP Prov:NGUYEN GONZALEZ MD 03/03/18 Ondansetron Hcl* (Zofran*) 4 Mg Tab, 4 MG PO Q6H PRN for NAUSEA AND OR VOMITING, #60 TAB Prov:BEBA CASTRO 10/23/17 Current Medications Lactated Ringer's 1,000 ml @ 20 mls/hr Q24H ONCE IV ; Start 09/21/18 at 06:00; Stop 09/22/18 at 05:59 Cefazolin Sodium/ Dextrose 50 ml @ 100 mls/hr PREOP IVPB ; Start 09/21/18 at 06:00; Stop 09/21/18 at 19:00 Gentamicin Sulfate 160 mg/ Dextrose 104 ml @ 103.75 mls/ hr PREOP IVPB ; Start 09/21/18 at 06:00; Stop 09/21/18 at 19:00 Sodium Chloride 1,000 ml @ 75 mls/hr [id number] IV ; Start 09/21/18 at 06:00 Meds reviewed: Yes Allergies Uncoded Allergies: PLASTIC TAPE (Allergy, Unknown, 09/20/18) Allergies Reviewed: Yes Labs/Studies Labs Reviewed: Reviewed by anesthesiologist test: N/A Pre-procedure Exam Last vitals Vital Signs Date Temp Pulse Resp B/P (MAP) Pulse Ox O2 O2 Flow FiO2 Time Delivery Rate 09/21/18 98.0 72 20 147/79 98 Room Air 07:14 (101) Airway: Adequate mouth opening, Adequate thyromental dist Mallampati: Mallampati II Teeth: Normal Lung: Normal Heart: Normal ASA Physical Status ASA physical status: 2 Emergency: None Planned Anesthetic General/MAC: ETT (vs. ), LMA Planned Pain Management Parenteral pain med Pre-operative Attestations Prior to commencing anesthesia and surgery, the patient was re-evaluated, there was verification of: *The patient's identity *The results of appropriate recent lab work and preoperative vital signs *The above evaluation not changing prior to induction *Anesthetic plan, risk benefits, alternative and complications discussed with patient/family; questions answered; patient/family understands, accepts and wishes to proceed. CURTIS VASQUEZ MD Sep 21, 2018 07:22
[2018-09-21] MEDS: SOD CHLORIDE 0.9% 1,000 ML IV SCH ×2 (07:39→21:18)
--- NOTE | 2018-09-21 07:46 | HPN ---
Date/Time of Note Date/Time of Note DATE: 09/21/18 TIME: 07:46 Interval H&P Admission Note Pt. seen H&P reviewed: No system changes YESSI CLIFFORD MD Sep 21, 2018 07:46
[2018-09-21] MEDS ORDERED: EPHEDrine 25 MG/5 ML SYG ONE (07:49)
[2018-09-21] MEDS ORDERED: MIDAZOLAM 1 MG/ML 2 ML INJ ONE (07:49)
[2018-09-21] MEDS ORDERED: PROPOFOL 20 ML ONE ×2 (08:06→08:39)
[2018-09-21] MEDS ORDERED: CEFAZOLIN 1 GM INJ ONE (08:06)
[2018-09-21] MEDS ORDERED: LIDOCAINE 2% (SDV) 5 ML INJ ONE (08:06)
[2018-09-21] MEDS ORDERED: SUCCINYLCHOLINE CHLORIDE 100 MG/5 ML SYG IV ONE (08:06)
[2018-09-21] MEDS ORDERED: ONDANSETRON 4 MG INJ ONE (08:07)
[2018-09-21] MEDS ORDERED: FAMOTIDINE 20 MG INJ ONE (08:07)
[2018-09-21] MEDS ORDERED: DEXAMETHASONE 4 MG/ML 5 ML INJ ONE (08:07)
[2018-09-21] MEDS ORDERED: MUPIROCIN 2% 15 GM CR ONE (09:15)
[2018-09-21] MEDS ORDERED: LIDOCAINE 1%/EPI 30 ML INJ ONE ×2 (09:17→10:07)
[2018-09-21] MEDS ORDERED: BUPIVACAINE 0.25% (MPF) 30 ML INJ ONE ×2 (09:17→10:07)
--- NOTE | 2018-09-21 09:23 | SIPON ---
Date/Time of Note Date/Time of Note DATE: 09/21/18 TIME: 09:21 Operative Report Preoperative Diagnosis Inflammatory cancer left breast Postoperative Diagnosis Same Operation/Procedure Performed Left modified radical mastectomy with immediate reconstruction Surgeon see signature line licensed physical therapy assistant Dr Berman Anesthesia: general Estimated blood loss: 50 - 100 ml's Transfusion Required none Specimen Left breast and axillary contents and additional superior margin additional inferior margin and then specimen #4 is a re-excision of the entire margin circumferentially Grafts/Implants none Complications none WAYNE FISHER MD Sep 21, 2018 09:23
[2018-09-21] MEDS ORDERED: ACETAMINOPHEN 1000MG/100ML IV 100 ML IVPB PRN (09:30)
[2018-09-21] MEDS ORDERED: HYDROmorphONE 2 MG/ML SYG ONE (09:40)
[2018-09-21] MEDS ORDERED: KETOROLAC 30 MG INJ ONE (11:27)
[2018-09-21] MEDS ORDERED: EPHEDrine 25 MG/5 ML SYG IV PRN (12:00)
[2018-09-21] MEDS ORDERED: FENTAnyl 50 MCG/ML VIAL IV PRN ×3 (12:00)
[2018-09-21] MEDS ORDERED: hydrALAzine 20 MG INJ IV PRN (12:00)
[2018-09-21] MEDS ORDERED: HYDROmorphONE 1 MG/5 ML IV SYRINGE IV PRN ×3 (12:00)
[2018-09-21] MEDS ORDERED: LABETALOL HCL 20MG INJ IV PRN (12:00)
[2018-09-21] MEDS ORDERED: ONDANSETRON 4 MG INJ IV PRN (12:00)
[2018-09-21] MEDS ORDERED: PROCHLORPERAZINE 10 MG INJ IV PRN (12:00)
[2018-09-21] MEDS ORDERED: MEPERIDINE 25 MG INJ IV PRN (12:00)
[2018-09-21] MEDS ORDERED: DIPHENHYDRAMINE 50 MG INJ IV PRN (12:00)
--- NOTE | 2018-09-21 12:38 | OPPN ---
Date/Time of Note Date/Time of Note DATE: 09/21/18 TIME: 12:24 Operative Report Preoperative Diagnosis Immediately Post Extensive Left Mastectomy for Inflammatory Breast Carcinoma. Postoperative Diagnosis Same Operation/Procedure Performed Immediate Left Chest Wall Reconstruction UsingTripple Advancement Fasciocutaneous Flap, and Inserttion of 10cm X 10 cm. Full Thickness Skin Graft from Left Groin Surgeon Yessi Leach M.D. plant attendant or assistant operator Carlo Berman M.D. Anesthesia: general (E.T.I[employer] Josefa Sanches M.D., + 90 cc of 0.5% Lidocain, 0.125% Marcain, and [id number] Epinephrine) Estimated blood loss: 0 - 10 ml's Transfusion Required none Specimen None Grafts/Implants FTSG from Lt. Groin Complications none YESSI LEACH MD Sep 21, 2018 12:35
[2018-09-21] MEDS: ONDANSETRON 4 MG INJ IV PRN ×3 (12:44→20:59)
--- NOTE | 2018-09-21 13:01 | OPR ---
DATE OF OPERATION: 09/21/2018 PREOPERATIVE DIAGNOSIS: Inflammatory breast cancer, left breast. POSTOPERATIVE DIAGNOSIS: Inflammatory breast cancer, left breast. OPERATION PERFORMED: Left modified radical mastectomy. ANESTHESIA: General. ANESTHESIOLOGIST: Dr. Anabel Sanches. SURGEON: Cayetano Carrasquillo MD [employer]PERIMENT[employer]: Carlo Cook MD PLASTIC SURGEON: Guzman Leach MD INDICATIONS FOR PROCEDURE: The patient is an unfortunate 52-year-old female who presented with a lar ge fungating mass in her left breast. Findings were consistent with inflammatory breast cancer and t hat was confirmed on biopsy. The patient was treated with neoadjuvant chemotherapy and radiation wit h some response. She was then seen by attending plastic surgeon, Dr. Guzman Leach, as it was anticipa kathleen that the patient would need either a skin flap reconstruction or a split thickness skin graft. Pio Cook evaluated the patient preoperatively and agreed to proceed with providing flap closure. Th e patient consented and was scheduled for surgery. DESCRIPTION OF PROCEDURE: The patient was brought to the operating theater, placed under general end otracheal tube anesthesia. The left breast and axillary region was prepped and draped in usual steri le fashion. Dr. Cook had demarcated a planned incision widely around the visually obvious disease process. It was unclear if the residual skin changes were related to residual tumor or to radiation changes. The demarcated incision was then carried out with 15 blade scalpel. Subcutaneous tissue was dissecte d with cautery. The skin edges were elevated with Allis Noble clamps and skin flaps were created usi ng cautery, first superiorly to the clavicle, then medially to the sternal border, inferiorly to the inframammary fold and laterally until the latissimus dorsi muscle was identified throughout its cours e. The mastectomy then took place from medial to lateral using cautery at the border of the pectoral is major muscle. The pectoralis minor muscle was identified. Clavipectoral fascia was incised and t he axillary node dissection then took place using deployment device. Additional connective tissue at tachments to latissimus dorsi muscle were transected with cautery. Specimen was then oriented and sk in biopsies were taken, both superiorly and inferiorly. An intraoperative frozen section performed b dieudonne Scherer did reveal some residual tumor. Therefore, additional margin was taken both sup eriorly and inferiorly. At this point, the wound was irrigated and controlled. The operation was turned over to Dr. Guzman gimenez who proceeded with a flap reconstruction. Total blood loss for Dr. Carrasquillo' portion of the operat ion was approximately 100 mL. There were no complications, and the patient was in stable condition w hen Dr. Carrasquillo left the operating room. Dictated By: CAYETANO CARRASQUILLO MD TL/TYLER Conf#: [id number] DID#: [id number] CC: CARLO COOK MD;*EndCC*
--- NOTE | 2018-09-21 13:15 | PAC ---
Date/Time of Note Date/Time of Note DATE: 09/21/18 TIME: 13:14 Post-Anesthesia Notes Post-Anesthesia Note Last documented vital signs Vital Signs Date Temp Pulse Resp B/P (MAP) Pulse Ox O2 O2 Flow FiO2 Time Delivery Rate 09/21/18 90 16 143/74 99 Nasal 12:56 (97) Cannula 09/21/18 97.9 12:17 Activity: WNL Respiratory function: WNL Cardiovascular function: WNL Mental status: Baseline Pain reasonably controlled: Yes Hydration appropriate: Yes Nausea/Vomiting absent: Yes Comments Bp: 138/70 HR: 88 RR: 15 T: 97.9 SaO2: 99% CURTIS VASQUEZ MD Sep 21, 2018 13:15
[2018-09-21] MEDS: D5W-0.45 NACL + KCL 20 MEQ 1,000 ML IV SCH ×2 (17:23→18:29)
--- NOTE | 2018-09-21 17:50 | OPR ---
DATE OF OPERATION: 09/21/2018 PREOPERATIVE DIAGNOSIS: Immediately post-extensive left mastectomy for inflammatory breast carcinoma . POSTOPERATIVE DIAGNOSIS: Immediately post-extensive left mastectomy for inflammatory breast carcinom a. OPERATION PERFORMED: Immediate left chest wall reconstruction post-extensive mastectomy using triple advancement fasciocutaneous flap and insertion of a 10 cm x 10 cm full-thickness skin graft from lef t groin SURGEON: Yessi Leach MD RETAIL PHARMACIST: Carlo Cook MD ANESTHESIA: General endotracheal intubation, with 90 mL infiltration of local anesthetic including 0 .5% lidocaine, 0.125% Marcaine and 1:200,000 epinephrine solution. ANESTHESIOLOGIST: Josefa Sanches MD ESTIMATED BLOOD LOSS: 10 mL. SPECIMEN: None. COMPLICATIONS: None. DRESSING: Tie-over dressing on skin graft with Bactroban cream covered by a dry sterile dressing on both donor side and the left chest, covered by ABD pad and mammary support. OPERATIVE PROCEDURE: Patient received 2 grams of intravenous Ancef and 160 mg of gentamicin as preop erative antibiotic. Markings for the planned procedure were made with the patient in sitting positio n in the holding area. In the operating room with the patient in supine position, following adequate monitoring and induction of adequate level of general anesthesia using endotracheal intubation, oper ation was first started by Dr. Carrasquillo, who performed a modified radical mastectomy for the left breast with extensive skin excision due to inflammatory breast carcinoma. Following completion of left mas tectomy, I started my procedure for reconstruction of the chest. The patient had already been counse led and informed of options with the history of radiation and also with the fact that there is a high chance of local recurrence, reconstruction of the breast was not advisable. Therefore, the patient requested a chest wall reconstruction for the proper healing and deferred any breast reconstruction f or the future if there is no recurrence seen. Operative area was irrigated using copious amount of triple antibiotic solution. At this time, three fasciocutaneous flaps were elevated, 1 superiorly based and 1 inferiorly based as a reverse abdomino plasty flap and the third one into and close to the axillary area. These flaps were advanced and ins et to decrease the size of the defect that was over 30 cm in each diameter post-mastectomy to a 10 x 10 cm defect. Due to no necessity of removal of the muscle, no need was seen to use an acellular riaz mal matrix. At this point, a corresponding size of full-thickness skin graft was harvested from the left groin. This was defatted. Vent holes were placed on the skin graft and the skin graft was inse t over the defect on the left chest. Donor site was primarily closed using 2-0 Monocryl sutures. Ski n graft was inset using interrupted and continuous stitches of 5-0 Monocryl. Repair was found to be satisfactory upon its completion. Dressing was applied as mentioned above. A 10 mm flat Roman-Pra tt drain was inserted from medial aspect of left inframammary area beneath the abdominal flap toward the axilla and fixed to the skin using a 2-0 Monocryl prior to insetting of the flaps. The patient tolerated this procedure very well. All dressings were applied, followed by mammary supp ort. She tolerated this procedure very well and left the operating room to the recovery room awake, stable and in comfortable, satisfactory and extubated condition. Dictated By: YESSI CAMACHO/TYLER Conf#: [id number] DID#: [id number] CC: WAYNE CARRASQUILLO MD; CARLO COOK MD;*End*
[2018-09-21] MEDS: morphine 2 MG INJ IV PRN (18:28)
[2018-09-22] VITALS: BP 137/68; PULSE 69; RESP 16
[2018-09-22] MEDS: D5W-0.45 NACL + KCL 20 MEQ 1,000 ML IV SCH ×3 (01:23→12:49)
[2018-09-22] MEDS: ONDANSETRON 4 MG INJ IV PRN (02:39)
[2018-09-22] MEDS: morphine 2 MG INJ IV PRN (02:40)
[2018-09-22 04:20] VITALS: BP 136/70; PULSE 64; RESP 16
[2018-09-22 08:11] VITALS: BP 129/63; PULSE 84; RESP 16
[2018-09-22] MEDS: HYDROCODONE/APAP (5/325) TAB PO PRN ×3 (08:21→20:26)
[2018-09-22] MEDS: SOD CHLORIDE 0.9% 1,000 ML IV SCH (08:40)
[2018-09-22 13:29] VITALS: BP 138/64; PULSE 86; RESP 18
--- NOTE | 2018-09-22 15:38 | HP ---
Date/Time of Note Date/Time of Note DATE: 09/22/18 TIME: 15:37 Assessment/Plan VTE Prophylaxis Risk score (from Ns)>0 risk: 3 SCD applied (from Ns): Yes Pharmacological prophylaxis: LMWH Lines/Catheters IV Catheter Type (from Nrsg): Peripheral IV Urinary Cath still in place: No Assessment/Plan Hospital Course 1) breast cancer - s/p mastectomy 2) hypertension - monitor blood pressure HPI/ROS Admit Date/Time Admit Date/Time Sep 21, 2018 at 05:49 Hx of Present Illness Patient with hypertension and left breast cancer is here for mastectomy. Patient tolerated the procedure and is receiving postoperative care. PMH/Family/Social Past Medical History Medical History: hypertension Medications Current Medications Sodium Chloride 1,000 ml @ 75 mls/hr [id number] IV Last administered on 09/21/18at 07:39; Admin Dose 75 MLS/HR; Start 09/21/18 at 06:00 Ondansetron HCl (Zofran Inj) 4 mg Q6H PRN IV NAUSEA AND/OR VOMITING Last administered on 09/22/18at 02:39; Admin Dose 4 MG; Start 09/21/18 at 09:30 Potassium Chloride/Dextrose/ Sod Cl 1,000 ml @ 60 mls/hr [id number] IV Last administered on 09/22/18at 12:49; Admin Dose 60 MLS/HR; Start 09/21/18 at 09:23 Morphine Sulfate (morphine) 2 mg Q1H PRN IV PAIN Last administered on 09/22/18at 02:40; Admin Dose 2 MG; Start 09/21/18 at 09:30 Ephedrine Sulfate 5 mg PACU ORDER PRN IV BLOOD PRESSURE SUPPORT; Start 09/21/18 at 12:00 Acetaminophen/ Hydrocodone Bitart ([place] (5/325)) 1 tab Q6H PRN PO MODERATE PAIN LEVEL 4-6 Last administered on 09/22/18at 14:24; Admin Dose 1 TAB; Start 09/22/18 at 08:00 Uncoded Allergies: PLASTIC TAPE (Allergy, Unknown, 09/20/18) Past Surgical History Past Surgical Hx: other Family History Significant Family History: no pertinent family hx Social History Smoking Status: Never smoker Exam/Review of Systems Vital Signs Vitals Vital Signs Date Temp Pulse Resp B/P (MAP) Pulse Ox O2 O2 Flow FiO2 Time Delivery Rate 09/22/18 97.7 86 18 138/64 96 13:29 (88) 09/21/18 Nasal 2.0 16:35 Cannula Intake and Output 09/21/18 09/21/18 09/22/18 1515:00 23:00 07:00 IntakeIntake Total 1800 ml 240 ml 1690 ml OutputOutput Total 50 ml 25 ml 60 ml BalanceBalance 1750 ml 215 ml 1630 ml Exam Constitutional: well developed Head: normocephalic, atraumatic Neck: supple Respiratory: diminished breath sounds Cardiovascular: regular rate and rhythm Gastrointestinal: soft, non-tender Extremities: normal pulses STEPAN PRATER Sep 22, 2018 15:38
[2018-09-22] MEDS: HYDROCHLOROTHIAZIDE 12.5 MG CAP PO SCH (18:01)
[2018-09-22] MEDS: BENAZEPRIL 20 MG TAB PO SCH (18:01)
[2018-09-22 19:53] VITALS: BP 120/62; PULSE 81; RESP 17
[2018-09-23] MEDS: D5W-0.45 NACL + KCL 20 MEQ 1,000 ML IV SCH ×3 (00:11→16:51)
[2018-09-23] MEDS: HYDROCODONE/APAP (5/325) TAB PO PRN ×4 (02:38→22:49)
[2018-09-23 02:56] VITALS: BP 94/51; PULSE 73; RESP 18
--- NOTE | 2018-09-23 04:10 | PN ---
DATE: 09/22/2018 SUBJECTIVE: Postop day #1 status post left breast Modified Radical mastectomy for cancer of the left breast, followed by immediate chest wall reconstruction by the plastic surgeon, Dr. Guzman Leach. No specific complaint. OBJECTIVE: VITAL SIGNS: Temperature maximum is 98.3, heart rate 84, respirations 16, blood pressure 129/80_, oxygen saturation 96% on room air. GENERAL: The patient is alert, awake, oriented x3, sitting on her bed in semi- sitting position. SCDs are on her legs. Has tolerated diet. There is 1 Roman-Gonzalez drain which, from the time of operation yesterday to today monitoring clock, has drained 85 mL of fluid. Drainage is serosanguineous. Dressing is intact. HEART: Regular. ABDOMEN: Soft. EXTREMITIES: Can move both upper extremities. The dressing is not too tight. No lower extremity calf tenderness. LABORATORY DATA: No lab has been done today. PLAN: Continue current care. Continue IV fluid. Do some blood tests tomorrow morning and she could be out of bed completely and walk around and now her pain is under control. From a general surgical point of view, the patient can be discharged home tomorrow. Dictated By: GALLO COOK MD PS/NTS Conf#: [id number] DID#: [id number] CC: WAYNE FISHER MD;*EndCC* MTDD
[2018-09-23 08:07] VITALS: BP 113/71; PULSE 70; RESP 18
[2018-09-23] MEDS: HYDROCHLOROTHIAZIDE 12.5 MG CAP PO SCH (08:41)
[2018-09-23] MEDS: BENAZEPRIL 20 MG TAB PO SCH (08:41)
--- NOTE | 2018-09-23 12:57 | PN ---
DATE: 09/23/2018 SUBJECTIVE: Postop day #2 status post left breast modified radical mastectomy with axillary and reconstruction of the left chest wall reconstruction post- extensive mastectomy using treatment advancement fasciocutaneous flap and insertion of a 10 x 2 cm full thickness skin graft from left groin. The patient complaining of some chills and some nausea and also pain over the left clavicle. OBJECTIVE: GENERAL: Awake, alert. VITAL SIGNS: Temperature maximum today 99 orally, heart rate 73, respiration 18, blood pressure 113/71, saturation 97% on 2 liters nasal cannula. Intake and output; the patient has 1 Roman-Gonzalez drain which has drained in the past 24 hours, 80 mL of liquid. The color is slightly bloody at this time. LABORATORY DATA: WBC 8700 with 69% segmented, but hemoglobin shows some drop from admission time. On admission, which showed on 09/17/2018, has been 13.2 and 39.6 and today is 9.6 and 29. CLINICAL EXAMINATION: There is some redness of the skin over the anterior chest wall, more on the left side toward the clavicle. There is also tenderness of the left clavicle on touching. The dressing was partially removed. The skin at the site of the operation is normal. Also, the area of the skin graft donor on the left groin was inspected. The skin does not show evidence of cellulitis. Legs, no calf tenderness. Dressing was reapplied everywhere. IMPRESSION: This is a 52-year-old female who had left modified radical mastectomy for cancer of left breast. Cancer was of inflammatory type. Therefore, when they did the resection had to excise more skin than usual and this required immediate reconstruction which was done by Dr. Guzman Leach, plastic surgeon and advancement flaps and also placement of Full thickness skin graft to the center of the reconstruction area. Patient received antibiotics at the time of operation, but I am going to start the patient on cefazolin, Ancef 1 gram IV q.6h and I am going to repeat the CBC tomorrow and keep the patient overnight to make sure that we do not get any infection or abnormal blood loss. Dictated By: GALLO COOK MD PS/NTS Conf#: [id number] DID#: [id number] CC: WAYNE FISHER MD;*EndCC* MTDD
[2018-09-23] MEDS: CEFAZOLIN 1 GM/50 ML (PMX) 50 ML IVPB SCH ×2 (13:56→21:06)
[2018-09-23 14:14] VITALS: BP 107/58; PULSE 78
--- NOTE | 2018-09-23 15:22 | PN ---
Date/Time of Note Date/Time of Note DATE: 09/23/18 TIME: 15:22 Assessment/Plan VTE Prophylaxis Risk score (from [facility])>0 risk: 3 SCD applied (from [facility]): Yes Pharmacological prophylaxis: LMWH Lines/Catheters IV Catheter Type (from [facility]): Peripheral IV Urinary Cath still in place: No Assessment/Plan Hospital Course 1) breast cancer - s/p mastectomy 2) hypertension - monitor blood pressure Result Diagram: 09/23/185 09/23/18444 Results 24hrs Laboratory Tests Test 09/23/18 04:45 White Blood Count 8.7 # Red Blood Count 3.01 #L Hemoglobin 9.6 #L Hematocrit 29.0 #L Mean Corpuscular Volume 96.3 Mean Corpuscular Hemoglobin 31.9 Mean Corpuscular Hemoglobin Concent 33.1 Red Cell Distribution Width 13.3 Platelet Count 235 # Mean Platelet Volume 8.6 Immature Granulocytes % 0.600 H Neutrophils % 69.6 Lymphocytes % 21.2 Monocytes % 7.0 Eosinophils % 1.1 Basophils % 0.5 Nucleated Red Blood Cells % 0.0 Immature Granulocytes # 0.050 H Neutrophils # 6.1 Lymphocytes # 1.9 Monocytes # 0.6 Eosinophils # 0.1 Basophils # 0.0 Nucleated Red Blood Cells # 0.0 Sodium Level 142 Potassium Level 3.4 L Chloride Level 106 Carbon Dioxide Level 30 Anion Gap 6 Blood Urea Nitrogen 23 H Creatinine 1.00 Est Glomerular Filtrat Rate mL/min 58 L Glucose Level 98 Calcium Level 8.8 Subjective 24 Hr Interval Summary Free Text/Dictation Patient still have fair amount of pain Exam/Review of Systems Exam Vitals Vital Signs Date Temp Pulse Resp B/P (MAP) Pulse Ox O2 O2 Flow FiO2 Time Delivery Rate 09/23/18 98.1 78 107/58 100 14:14 (74) 09/23/18 18 08:07 09/21/18 Nasal 2.0 16:35 Cannula Intake and Output 09/22/18 09/22/18 09/23/18 1515:00 23:00 07:00 IntakeIntake Total 790 ml 690 ml 850 ml OutputOutput Total 20 ml 35 ml 25 ml BalanceBalance 770 ml 655 ml 825 ml Constitutional: well developed Head: normocephalic, atraumatic Neck: supple Respiratory: clear to auscultation Cardiovascular: regular rate and rhythm Gastrointestinal: soft, non-tender Extremities: normal pulses Results Results 24hrs Laboratory Tests Test 09/23/18 04:45 White Blood Count 8.7 # Red Blood Count 3.01 #L Hemoglobin 9.6 #L Hematocrit 29.0 #L Mean Corpuscular Volume 96.3 Mean Corpuscular Hemoglobin 31.9 Mean Corpuscular Hemoglobin Concent 33.1 Red Cell Distribution Width 13.3 Platelet Count 235 # Mean Platelet Volume 8.6 Immature Granulocytes % 0.600 H Neutrophils % 69.6 Lymphocytes % 21.2 Monocytes % 7.0 Eosinophils % 1.1 Basophils % 0.5 Nucleated Red Blood Cells % 0.0 Immature Granulocytes # 0.050 H Neutrophils # 6.1 Lymphocytes # 1.9 Monocytes # 0.6 Eosinophils # 0.1 Basophils # 0.0 Nucleated Red Blood Cells # 0.0 Sodium Level 142 Potassium Level 3.4 L Chloride Level 106 Carbon Dioxide Level 30 Anion Gap 6 Blood Urea Nitrogen 23 H Creatinine 1.00 Est Glomerular Filtrat Rate mL/min 58 L Glucose Level 98 Calcium Level 8.8 Medications Medication Current Medications Ondansetron HCl (Zofran Inj) 4 mg Q6H PRN IV NAUSEA AND/OR VOMITING Last administered on 09/22/18at 02:39; Admin Dose 4 MG; Start 09/21/18 at 09:30 Potassium Chloride/Dextrose/ Sod Cl 1,000 ml @ 60 mls/hr [id number] IV Last administered on 09/23/18at 05:42; Admin Dose 60 MLS/HR; Start 09/21/18 at 09:23 Morphine Sulfate (morphine) 2 mg Q1H PRN IV PAIN Last administered on 09/22/18at 02:40; Admin Dose 2 MG; Start 09/21/18 at 09:30 Ephedrine Sulfate 5 mg PACU ORDER PRN IV BLOOD PRESSURE SUPPORT; Start 09/21/18 at 12:00 Acetaminophen/ Hydrocodone Bitart ([place] (5/325)) 1 tab Q6H PRN PO MODERATE PAIN LEVEL 4-6 Last administered on 09/23/18at 08:42; Admin Dose 1 TAB; Start 09/22/18 at 08:00 Benazepril HCl (Lotensin) 20 mg DAILY PO Last administered on 09/23/18at 08:41; Admin Dose 20 MG; Start 09/22/18 at 16:30 Hydrochlorothiazide (Hydrochlorothiazide) 12.5 mg DAILY PO Last administered on 09/23/18at 08:41; Admin Dose 12.5 MG; Start 09/22/18 at 16:30 Cefazolin Sodium 50 ml @ 100 mls/hr Q8 IVPB Last administered on 09/23/18at 13:56; Admin Dose 100 MLS/HR; Start 09/23/18 at 14:00 Magnesium Hydroxide (Milk Of Mag) 30 ml DAILY@2100 PO ; Start 09/23/18 at 21:00 STEPAN PRATER Sep 23, 2018 15:22
[2018-09-23] MEDS ORDERED: POTASSIUM CHLORIDE (SR) 20 MEQ TAB PO STA (15:27)
[2018-09-23] MEDS ORDERED: BISACODYL (EC) 5 MG TAB PO PRN (15:30)
[2018-09-23 20:28] VITALS: BP 128/86; PULSE 77; RESP 17
[2018-09-23] MEDS: MAGNESIUM HYDROXIDE 30ML CUP PO SCH (21:00)
[2018-09-24] MEDS: D5W-0.45 NACL + KCL 20 MEQ 1,000 ML IV SCH (01:54)
[2018-09-24 02:21] VITALS: BP 104/83; PULSE 65; RESP 16
[2018-09-24] MEDS: HYDROCODONE/APAP (5/325) TAB PO PRN ×4 (04:12→23:29)
[2018-09-24] MEDS: CEFAZOLIN 1 GM/50 ML (PMX) 50 ML IVPB SCH ×3 (05:35→23:34)
[2018-09-24 07:30] VITALS: BP 114/81; PULSE 74; RESP 20
[2018-09-24] MEDS: BENAZEPRIL 20 MG TAB PO SCH (08:16)
[2018-09-24] MEDS: HYDROCHLOROTHIAZIDE 12.5 MG CAP PO SCH (08:17)
[2018-09-24] MEDS: ACETAMINOPHEN 325 MG TAB PO PRN ×2 (09:25→20:34)
[2018-09-24] MEDS ORDERED: POTASSIUM CHLORIDE (SR) 20 MEQ TAB PO STA (11:52)
--- NOTE | 2018-09-24 12:48 | PN ---
Date/Time of Note Date/Time of Note DATE: 09/24/18 TIME: 12:47 Assessment/Plan VTE Prophylaxis Risk score (from [facility]0 risk: 4 SCD applied (from Ns): Yes Pharmacological prophylaxis: LMWH Lines/Catheters IV [facility]ter Type (from [facility]): Peripheral IV Urinary Cath still in place: No Assessment/Plan Hospital Course 1) breast cancer - s/p mastectomy 2) hypertension - monitor blood pressure Result Diagram: 09/24/18 0510 09/23/18 0445 Results 24hrs Laboratory Tests Test 09/24/18 05:10 White Blood Count 7.6 Red Blood Count 2.98 L Hemoglobin 9.3 L Hematocrit 28.9 L Mean Corpuscular Volume 97.0 Mean Corpuscular Hemoglobin 31.2 Mean Corpuscular Hemoglobin Concent 32.2 Red Cell Distribution Width 13.2 Platelet Count 239 Mean Platelet Volume 8.5 Immature Granulocytes % 0.400 Neutrophils % 59.2 Lymphocytes % 28.1 Monocytes % 8.3 Eosinophils % 3.6 Basophils % 0.4 Nucleated Red Blood Cells % 0.0 Immature Granulocytes # 0.030 Neutrophils # 4.5 Lymphocytes # 2.1 Monocytes # 0.6 Eosinophils # 0.3 Basophils # 0.0 Nucleated Red Blood Cells # 0.0 Subjective 24 Hr Interval Summary Free Text/Dictation Patient still have postoperative pain Exam/Review of Systems Exam Vitals Vital Signs Date Temp Pulse Resp B/P (MAP) Pulse Ox O2 O2 Flow FiO2 Time Delivery Rate 09/24/18 98.5 74 20 114/81 100 07:30 (92) 09/21/18 Nasal 2.0 16:35 Cannula Intake and Output 09/23/18 09/23/18 09/24/18 1515:00 23:00 07:00 IntakeIntake Total 840 ml 1360 ml 730 ml OutputOutput Total 35 ml 20 ml BalanceBalance 840 ml 1325 ml 710 ml Constitutional: well developed Head: normocephalic, atraumatic Neck: supple Respiratory: clear to auscultation Cardiovascular: regular rate and rhythm Gastrointestinal: soft, non-tender Extremities: normal pulses Results Results 24hrs Laboratory Tests Test 09/24/18 05:10 White Blood Count 7.6 Red Blood Count 2.98 L Hemoglobin 9.3 L Hematocrit 28.9 L Mean Corpuscular Volume 97.0 Mean Corpuscular Hemoglobin 31.2 Mean Corpuscular Hemoglobin Concent 32.2 Red Cell Distribution Width 13.2 Platelet Count 239 Mean Platelet Volume 8.5 Immature Granulocytes % 0.400 Neutrophils % 59.2 Lymphocytes % 28.1 Monocytes % 8.3 Eosinophils % 3.6 Basophils % 0.4 Nucleated Red Blood Cells % 0.0 Immature Granulocytes # 0.030 Neutrophils # 4.5 Lymphocytes # 2.1 Monocytes # 0.6 Eosinophils # 0.3 Basophils # 0.0 Nucleated Red Blood Cells # 0.0 Medications Medication Current Medications Ondansetron HCl (Zofran Inj) 4 mg Q6H PRN IV NAUSEA AND/OR VOMITING Last administered on 09/22/18 02:39; Admin Dose 4 MG; Start 09/21/18 at 09:30 Morphine Sulfate (morphine) 2 mg Q1H PRN IV PAIN Last administered on 09/22/18 02:40; Admin Dose 2 MG; Start 09/21/18 at 09:30 Ephedrine Sulfate 5 mg PACU ORDER PRN IV BLOOD PRESSURE SUPPORT; Start 09/21/18 at 12:00 Acetaminophen/ Hydrocodone Bitart ([place] (5/325)) 1 tab Q6H PRN PO MODERATE PAIN LEVEL 4-6 Last administered on 09/24/18at 10:51; Admin Dose 1 TAB; Start 09/22/18 at 08:00 Benazepril HCl (Lotensin) 20 mg DAILY PO Last administered on 09/24/18 08:16; Admin Dose 20 MG; Start 09/22/18 at 16:30 Hydrochlorothiazide (Hydrochlorothiazide) 12.5 mg DAILY PO Last administered on 09/24/18at 08:17; Admin Dose 12.5 MG; Start 09/22/18 at 16:30 Cefazolin Sodium 50 ml @ 100 mls/hr Q8 IVPB Last administered on 09/24/18at 05:35; Admin Dose 100 MLS/HR; Start 09/23/18 at 14:00 Magnesium Hydroxide (Milk Of Mag) 30 ml DAILY@2100 PO ; Start 09/23/18 at 21:00 Bisacodyl (Dulcolax) 10 mg DAILY PRN PO CONSTIPATION Last administered on 09/23/18at 16:35; Admin Dose 10 MG; Start 09/23/18 at 15:30 Acetaminophen (Tylenol Tab) 650 mg Q6H PRN PO MILD PAIN(1-3)OR ELEVATED TEMP Last administered on 09/24/18at 09:25; Admin Dose 650 MG; Start 09/24/18 at 09:30 STEPAN PRATER Sep 24, 2018 12:47
[2018-09-24 13:20] VITALS: BP 125/74; PULSE 72; RESP 18
[2018-09-24 19:39] VITALS: BP 113/60; PULSE 71; RESP 17
--- NOTE | 2018-09-24 20:31 | PN ---
DATE: 09/24/2018 The patient is status post left modified radical mastectomy with axillary for the inflammatory cancer of the left breast. Yesterday, we found that the skin over the left chest wall was to some extent erythematous and the patient had a low-grade fever. Therefore, considering the high risk patient with inflammatory carcinoma, status post chemotherapy and radiation therapy, and also having had mobilization of the skin flap for closure, a decision was made and I checked with Dr. Guzman Leach, the plastic surgeon, to start the patient on Ancef 1 gram IV q.6h. Today, subjectively still complains of some pain and has had some dizziness. Requires pain medication. OBJECTIVE: GENERAL: Awake, alert, oriented, no acute distress but lethargic. Also, has been complaining of headache since yesterday. VITAL SIGNS: Temperature today maximum is 98.5, heart rate 74, respirations 20, blood pressure 104/81, saturation 98% room air. LABORATORY DATA: WBC 7600 with 59% segmented. Hemoglobin slightly dropped to 9.3, hematocrit 28.9. On the 09/15/2018 it was 13.2 and 39.6. Platelet count is 239. Chemistry: The BUN was 33 yesterday, today is 23, creatinine was 1.28, which was high yesterday, today is almost normal PHYSICAL EXAMINATION: GENERAL: Lying down in the bed. HEAD: Normocephalic. CHEST: Symmetrical expansion. Dressing is intact. HEART: Regular. LUNGS: Clear. ABDOMEN: The Roman-Gonzalez drain which from yesterday morning to today morning has drained 55 mL of fluid. The color has been reported as semi-bloody and today also there was a 25 mL in the back and 2 mL in the tubing. I milked the tubing, still there fluid is more towards bloody and being serosanguineous. Also should mention that the left axillary area anteriorly close to the tendon of the pectoralis major on the left side, there is some swelling suspecious of hematoma formation but is not hard, it is relatively soft. ASSESSMENT AND PLAN: The patient, 52 years old, status post inflammatory carcinoma of the left breast, who has had radiotherapy, chemotherapy and now was admitted for mastectomy, status post day #3. Has been here to control the pain and also considering the high risk patient yesterday looked that the skin color was changing toward some kind of cellulitis, so we started the patient on antibiotic, Ancef and will continue to give every 6 to 8 hours and will repeat the CBC tomorrow morning, and keep the patient overnight again. If by tomorrow morning, CBC and differential is normal, then patient can be discharged home to be followed by Dr. Leach in his office next and by Dr. Carrasquillo on 10/04/2018. Instruction for the care of the [facility] was given to the patient by myself. Dictated By: GALLO COOK MD PS/NTS Conf#: [id number] DID#: [id number] CC: WAYNE CARRASQUILLO MD; ROXANN ANDERSON; NGUYEN GONZALEZ MD; ARNAV CLARK MD; ELVIA MEAD MD;*EndCC* MTDD
[2018-09-24] MEDS: MAGNESIUM HYDROXIDE 30ML CUP PO SCH (20:49)
[2018-09-25 02:04] VITALS: BP 93/52; PULSE 74; RESP 18
[2018-09-25] MEDS: CEFAZOLIN 1 GM/50 ML (PMX) 50 ML IVPB SCH ×2 (06:19→13:19)
[2018-09-25] MEDS: HYDROCODONE/APAP (5/325) TAB PO PRN ×2 (06:26→13:19)
[2018-09-25 07:32] VITALS: BP 133/68; PULSE 63; RESP 20
[2018-09-25] MEDS: BENAZEPRIL 20 MG TAB PO SCH (08:21)
[2018-09-25] MEDS: HYDROCHLOROTHIAZIDE 12.5 MG CAP PO SCH (08:21)
--- NOTE | 2018-09-25 10:46 | PN ---
Date/Time of Note Date/Time of Note DATE: 09/25/18 TIME: 10:45 Assessment/Plan VTE Prophylaxis Risk score (from [facility])>0 risk: 5 SCD applied (from Ns): Yes Pharmacological prophylaxis: LMWH Lines/Catheters IV C[facility]ter Type (from [facility] Peripheral IV Urinary Cath still in place: No Assessment/Plan Hospital Course 1) breast cancer - s/p mastectomy 2) hypertension - monitor blood pressure Result Diagram: 09/25/18 0541 09/23/18 0445 Results 24hrs Laboratory Tests Test 09/25/18 05:41 White Blood Count 6.9 Red Blood Count 3.12 L Hemoglobin 9.9 L Hematocrit 29.4 L Mean Corpuscular Volume 94.2 Mean Corpuscular Hemoglobin 31.7 Mean Corpuscular Hemoglobin Concent 33.7 Red Cell Distribution Width 12.9 Platelet Count 272 Mean Platelet Volume 8.4 Immature Granulocytes % 0.100 Neutrophils % 53.8 Lymphocytes % 30.0 Monocytes % 8.6 Eosinophils % 6.9 Basophils % 0.6 Nucleated Red Blood Cells % 0.0 Immature Granulocytes # 0.010 Neutrophils # 3.7 Lymphocytes # 2.1 Monocytes # 0.6 Eosinophils # 0.5 Basophils # 0.0 Nucleated Red Blood Cells # 0.0 Subjective 24 Hr Interval Summary Free Text/Dictation Patient doing ok Exam/Review of Systems Exam Vitals Vital Signs Date Temp Pulse Resp B/P (MAP) Pulse Ox O2 O2 Flow FiO2 Time Delivery Rate 09/25/18 98.4 63 20 133/68 97 07:32 (89) 09/21/18 Nasal 2.0 16:35 Cannula Intake and Output 09/24/18 09/24/18 09/25/18 1515:00 23:00 07:00 IntakeIntake Total 1160 ml 600 ml 100 ml OutputOutput Total 20 ml 20 ml BalanceBalance 1160 ml 580 ml 80 ml Constitutional: well developed Head: normocephalic, atraumatic Neck: supple Respiratory: clear to auscultation Cardiovascular: regular rate and rhythm Gastrointestinal: soft, non-tender Extremities: normal pulses Results Results 24hrs Laboratory Tests Test 09/25/18 05:41 White Blood Count 6.9 Red Blood Count 3.12 L Hemoglobin 9.9 L Hematocrit 29.4 L Mean Corpuscular Volume 94.2 Mean Corpuscular Hemoglobin 31.7 Mean Corpuscular Hemoglobin Concent 33.7 Red Cell Distribution Width 12.9 Platelet Count 272 Mean Platelet Volume 8.4 Immature Granulocytes % 0.100 Neutrophils % 53.8 Lymphocytes % 30.0 Monocytes % 8.6 Eosinophils % 6.9 Basophils % 0.6 Nucleated Red Blood Cells % 0.0 Immature Granulocytes # 0.010 Neutrophils # 3.7 Lymphocytes # 2.1 Monocytes # 0.6 Eosinophils # 0.5 Basophils # 0.0 Nucleated Red Blood Cells # 0.0 Medications Medication Current Medications Ondansetron HCl (Zofran Inj) 4 mg Q6H PRN IV NAUSEA AND/OR VOMITING Last admin istered on 09/22/18 02:39; Admin Dose 4 MG; Start 09/21/18 at 09:30 Morphine Sulfate (morphine) 2 mg Q1H PRN IV PAIN Last administered on 09/22/18 02:40; Admin Dose 2 MG; Start 09/21/18 at 09:30 Ephedrine Sulfate 5 mg PACU ORDER PRN IV BLOOD PRESSURE SUPPORT; Start 09/21/18 at 12:00 Benazepril HCl (Lotensin) 20 mg DAILY PO Last administered on 09/25/18 08:21; Admin Dose 20 MG; Start 09/22/18 at 16:30 Hydrochlorothiazide (Hydrochlorothiazide) 12.5 mg DAILY PO Last administered on 09/25/18 08:21; Admin Dose 12.5 MG; Start 09/22/18 at 16:30 Cefazolin Sodium 50 ml @ 100 mls/hr Q8 IVPB Last administered on 09/25/18 06:19; Admin Dose 100 MLS/HR; Start 09/23/18 at 14:00 Magnesium Hydroxide (Milk Of Mag) 30 ml DAILY@2100 PO ; Start 09/23/18 at 21:00 Bisacodyl (Dulcolax) 10 mg DAILY PRN PO CONSTIPATION Last administered on 09/23/18 16:35; Admin Dose 10 MG; Start 09/23/18 at 15:30 Acetaminophen (Tylenol Tab) 650 mg Q6H PRN PO MILD PAIN(1-3)OR ELEVATED TEMP Last administered on 09/24/18 20:34; Admin Dose 650 MG; Start 09/24/18 at 09:30 Acetaminophen/ Hydrocodone Bitart ([place] (5/325)) 2 tab Q6H PRN PO MODERATE PAIN LEVEL 4-6 Last administered on 09/25/18at 06:26; Admin Dose 2 TAB; Start 09/24/18 at 21:00 STEPAN PRATER Sep 25, 2018 10:46
[2018-09-25 13:09] VITALS: BP 143/73; PULSE 74; RESP 18
--- NOTE | 2018-09-25 15:59 | PN ---
DATE: 09/25/2018 Status post left modified radical mastectomy postop day #4. SUBJECTIVE: No specific complaint except some pain in the area of the operation, especially in the a darnell of bone or skin graft which is left lower quadrant in the groin area. OBJECTIVE: GENERAL: Awake, alert, oriented. VITAL SIGNS: Temperature maximum today 98.7, heart rate 74, respiration 18, blood pressure 93/62, sa turation 97% room air. SKIN: The skin in the chest wall in the vicinity of the mastectomy area is clean, no cellulitis. In the anterior axillary to the lateral aspect of the tunnel of the pectoralis major, there is little b it of swelling which looks like fat or some small hematoma down there. EXTREMITIES: The patient can move both upper extremities. Legs: No calf tenderness. ABDOMEN: Soft. The skin at the site of the donor skin graft is clean, no cellulitis. LABORATORY DATA: WBC 6900 with 53% segmented, hemoglobin 9.9, hematocrit 29.4, stable, platelet coun t 272. ASSESSMENT AND PLAN: The patient with modified radical mastectomy, axillary dissection on the left s brea, plus immediate reconstruction by advancement fasciocutaneous flaps and skin graft from left groi n to the remaining of opening of the chest wall. The patient is doing fine now, but she has had prob aubree with pain control in past 3 to 4 days which necessitated to keep the patient in the hospital. I believe that today which is Wednesday postop day #4, the patient is stable enough. She can be discharge d home. Dr. Leach, the plastic surgeon, has written prescription for Duricef antibiotic and also for Tylenol #3 with codeine that I instructed the patient to buy them today and start taking them and al so patient was instructed how to take care of Roman-Gonzalez drain. She has 1 Roman-Gonzalez drain. S he is to home and she is supposed to see Dr. Leach in his office this coming . Dictated By: GALLO COOK MD PS/NTS Conf#: [id number] DID#: [id number] CC: WAYNE FISHER MD; MALIA BALLARD MD;*EndCC*
--- NOTE | 2018-09-26 15:31 | DS ---
Date/Time of Note Date/Time of Note DATE: 09/26/18 TIME: 15:30 Discharge Summary Admission/Discharge Info Admit Date/Time Sep 21, 2018 at 05:49 Discharge Date/Time Sep 25, 2018 at 17:15 Discharge Diagnosis 1) breast cancer - s/p mastectomy 2) hypertension - monitor blood pressure Patient Condition: Fair Consults surgery Procedures mastectomy Hx of Present Illness Patient with hypertension and left breast cancer is here for mastectomy. Patient tolerated the procedure and is receiving postoperative care. Hospital Course Patient with hypertension and left breast cancer is here for mastectomy. Patient tolerated the procedure and is receiving postoperative care. Patient was discharged once the patient was felt to be stable. 1) breast cancer - s/p mastectomy 2) hypertension - monitor blood pressure Home Meds Reported Medications Benazepril Hcl* (Benazepril Hcl*) 20 Mg Tablet, 20 MG PO DAILY, #30 TAB 09/21/18 Hydrochlorothiazide* (Hydrochlorothiazide*) 12.5 Mg Tablet, 12.5 MG PO DAILY, #30 TAB 09/21/18 Discontinued Reported Medications Oxycodone Hcl* (IR) (Roxicodone*) 5 Mg Tab, 5 MG PO Q6H PRN for PAIN, TAB 02/25/18 Discontinued Scripts Loperamide Hcl* (Loperamide Hcl*) 2 Mg Cap, 2 MG PO Q4H PRN for DIARRHEA, #14 CAP Prov:NGUYEN GONZALEZ MD 03/03/18 Ondansetron Hcl* (Zofran*) 4 Mg Tab, 4 MG PO Q6H PRN for NAUSEA AND OR VOMITING, #60 TAB Prov:BEBA CASTRO 10/23/17 Primary Care Provider Goode STEPAN PRATER Sep 26, 2018 15:31
== END 2018-09-25 17:15 | disposition home or self-care (01) | DRG 578 ==
LOC: EDSTATUS 09:00 → REC 09-21 05:49 → 2NE 09-21 15:51
PROVIDERS: ADMIT Surgery Surgical Oncology; ATTEND Surgery Surgical Oncology
PROC: 0JX80ZC Transfer Abdomen Subcutaneous Tissue and Fascia with Skin, Subcutaneous Tissue and Fascia, Open Approach (ICD-10-PCS; 2018-09-21)
PROC: 07B60ZZ Excision of Left Axillary Lymphatic, Open Approach (ICD-10-PCS; 2018-09-21)
PROC: 0HBLXZZ Excision of Left Lower Leg Skin, External Approach (ICD-10-PCS; 2018-09-21)
PROC: 0HTU0ZZ Resection of Left Breast, Open Approach (ICD-10-PCS; principal; 2018-09-21 07:30)
PROC: 0HRUX7Z (ICD-10-PCS; 2018-09-21 07:30)
DX: C50.912 Malignant neoplasm of unspecified site of left female breast (principal); I10 Essential (primary) hypertension; Z92.21 Personal history of antineoplastic chemotherapy; Z92.3 Personal history of irradiation
CPT/HCPCS: 71045; 80048; 80053; 84703; 85025; 85610; 85730; 86850; 86900; 86901; 88309; 88331; 93005; J0690; J1100; J1170; J1580; J1885; J2175; J2250; J2270; J2405; J3010; J3480; J7030; J7120

== ENCOUNTER → 2018-07-05 | Outpatient (CLI) | payer MEDICAID ==
[~2018-07-05] MED LIST changes: -BENA20TA4 PO; -HYDR12.58 PO
--- NOTE | 2018-07-05 17:16 | RADRPT ---
Echocardiogram Report Patient Name: REILLY MILLSPatient ID: [id number] : 1965 (52y 7m)Study Date: 07/05/2018 2:26:09 PM Gender: FAccession #: [id number] Tech: Con Keyes [facility] [place] Location: EKG Ref.Physician: ROXANN ANDERSON Height(Cm): BSA: Weight(Kg): Quality: AdequateOrder Physician: ROXANN ANDERSON Account #: Procedures: Echocardiographic Report: Transthoracic echocardiogram with complete 2D, M-Mode, and doppler examination. Indications: Breast CA. Measurements: 2D/M Mode Doppler Measurement Value Normal Range Measurement Value Normal Range LVIDd 2D 4.2 [ 3.8 - 5.2 ] cm AV Peak Suhas 1.5 [ 100.0 - 170.0 ] cm/sec LVIDs 2D 2.5 [ 2.2 - 3.5 ] cm AV Peak PG 8.0 [ 2.0 - 9.0 ] mmHg LVPWd 2D 1.1 [ 0.6 - 0.9 ] cm LVOT Peak Suhas 1.1 [ 70.0 - 110.0 ] cm/sec IVSd 2D 1.1 [ 0.6 - 0.9 ] cm LVOT Peak PG 5.0 [ 2.0 - 6.0 ] mmHg IVS/LVPW 2D 1.0 ratio MV E Peak Suhas 0.7 [ 60.0 - 130.0 ] cm/sec AoR Diam 2D 2.8 [ 2.3 - 3.1 ] cm MV A Peak Suhas 0.9 [ 100.0 - 120.0 ] cm/sec LA/Ao 2D 1 ratio MV E/A 0.8 [ 0.8 - 1.5 ] ratio LA Dimen 2D 3.0 [ 2.7 - 3.8 ] cm MV Decel Time 194 [ 104 - 258 ] msec Lat E` Suhas 0.1 [ 10.0 - 15.0 ] cm/sec MV E/A 0.8 [ 0.8 - 1.5 ] ratio TR Peak Suhas 2.2 [ 100.0 - 280.0 ] cm/sec TR Peak PG 20.0 mmHg RVSP 28.0 [ 10.0 - 36.0 ] mmHg Findings: Left Ventricle: Normal left ventricular systolic function. Normal left ventricular cavity size. Normal left ventricular wall thickness. Ejection fraction is visually estimated at 65 %. Tissue Doppler/Mitral Doppler indices are consistent with impaired relaxation (Stage I diastolic dysfunction). Right Ventricle: Normal right ventricular size. Normal right ventricular systolic function. Left Atrium: There is mild enlargement of left atrium. Right Atrium: The right atrium is normal in size. Mitral Valve: Normal appearance of the mitral valve. Normal appearance and function of the mitral valve with trace physiologic regurgitation. Aortic Valve: Normal appearance of the aortic valve. No significant aortic stenosis or insufficiency. Tricuspid Valve: Normal appearance of the tricuspid valve. Estimated peak PA systolic pressure 23 mmHg. There is trace tricuspid regurgitation. Pericardium: Normal pericardium with no significant pericardial effusion. Aorta: Normal aortic root. IVC: Normal size and normal respiratory collapse consistent with normal right atrial pressure. Conclusions: Normal left ventricular systolic function. Normal left ventricular cavity size. Normal left ventricular wall thickness. Ejection fraction is visually estimated at 65 %. Tissue Doppler/Mitral Doppler indices are consistent with impaired relaxation (Stage I diastolic dysfunction). No significant valvular stenosis or regurgitation seen. Estimated peak PA systolic pressure 23 mmHg. Normal size and normal respiratory collapse consistent with normal right atrial pressure. Electronically Signed By: Jaspal Weinberg 2018-07-05 17:15:28 PDT
== END | disposition home or self-care (01) ==
LOC: EKG 09:39
PROVIDERS: ATTEND Internal Medicine Hematology & Oncology
DX: C50.919 Malignant neoplasm of unspecified site of unspecified female breast (principal)
CPT/HCPCS: 93306

== ENCOUNTER 2018-10-14 12:52 | Inpatient (IN) | payer MEDICAID ==
[~2018-10-14] VITALS: Ht 152.4 cm; Wt 65.5 kg
[~2018-10-14 12:52] MED LIST changes: +BENA20TA4 PO; +DOXY100T2 PO; +HYDR-3601 PO; +HYDR12.58 PO; -LOPE-123 PO; +MUPI22OI2 TOP; -ONDA4TAB13 PO; -OXYC-481 PO
[2018-10-14] MEDS ORDERED: LACTATED RINGER'S 1,000 ML IV STA (13:41)
[2018-10-14] MEDS ORDERED: SILVER SULFADIAZINE 1% 25 GM CR TOP ONE (14:00)
[2018-10-14] MEDS ORDERED: SILVER SULFADIAZINE 1% 400 GM CR TOP ONE (14:00)
[2018-10-14 17:37] VITALS: Ht 152.4 cm; Wt 65.5 kg
[2018-10-14 17:53] VITALS: BP 147/53; PULSE 90; RESP 18
[2018-10-14] MEDS ORDERED: VANCOMYCIN IV PER PHARMACY XX SCH (19:00)
[2018-10-14 20:00] VITALS: BP 162/82; PULSE 79; RESP 18
[2018-10-14] MEDS ORDERED: VANCOMYCIN 1.25 GM/NS 250 ML 250 ML IVPB ONE (20:30)
[2018-10-14] MEDS ORDERED: VANCOMYCIN 1 GM (PMX) 250 ML ONE (20:55)
[2018-10-14] MEDS: SILVER SULFADIAZINE 1% 25 GM CR TOP SCH (21:15)
[2018-10-15 02:00] VITALS: BP 115/63; PULSE 80; RESP 17
[2018-10-15] MEDS: PANTOPRAZOLE (EC) 40 MG TAB PO SCH (05:54)
[2018-10-15 08:00] VITALS: BP 140/69; RESP 18
[2018-10-15] MEDS ORDERED: POTASSIUM CHLORIDE (SR) 20 MEQ TAB PO STA (08:35)
[2018-10-15] MEDS: BENAZEPRIL 20 MG TAB PO SCH (09:04)
[2018-10-15] MEDS: SILVER SULFADIAZINE 1% 25 GM CR TOP SCH ×2 (09:04→21:13)
[2018-10-15] MEDS: HYDROCHLOROTHIAZIDE 12.5 MG CAP PO SCH (09:04)
[2018-10-15] MEDS: DOCUSATE SODIUM 100 MG CAP PO SCH (09:04)
[2018-10-15] MEDS: ACETAMINOPHEN 325 MG TAB PO PRN (09:07)
[2018-10-15] MEDS: VANCOMYCIN 750 MG (PMX) 250 ML IVPB SCH ×2 (11:47→23:53)
[2018-10-15] MEDS ORDERED: VANCOMYCIN 500 MG (PMX) 100 ML IVPB SCH (12:00)
[2018-10-15 14:00] VITALS: BP 95/54; PULSE 78; RESP 17
[2018-10-15 20:00] VITALS: BP 145/69; PULSE 87; RESP 18
[2018-10-15] MEDS ORDERED: VANCOMYCIN 1 GM 250 ML IVPB SCH (20:30)
[2018-10-16 02:00] VITALS: BP 116/64; PULSE 75; RESP 18
[2018-10-16] MEDS: PANTOPRAZOLE (EC) 40 MG TAB PO SCH (05:53)
[2018-10-16 08:07] VITALS: BP 134/79; PULSE 74; RESP 16
[2018-10-16] MEDS: BENAZEPRIL 20 MG TAB PO SCH (08:29)
[2018-10-16] MEDS: DOCUSATE SODIUM 100 MG CAP PO SCH (08:29)
[2018-10-16] MEDS: HYDROCHLOROTHIAZIDE 12.5 MG CAP PO SCH (08:30)
[2018-10-16] MEDS: VANCOMYCIN 750 MG (PMX) 250 ML IVPB SCH (12:23)
[2018-10-16] MEDS: MUPIROCIN 2% 22 GM OINT TOP SCH ×2 (12:24→20:20)
[2018-10-16] MEDS: SILVER SULFADIAZINE 1% 25 GM CR TOP SCH ×2 (12:24→20:20)
[2018-10-16 14:43] VITALS: BP 127/87; PULSE 86; RESP 16
[2018-10-16 19:57] VITALS: BP 157/83; PULSE 80; RESP 18
[2018-10-16] MEDS: ACETAMINOPHEN 325 MG TAB PO PRN (23:12)
[2018-10-17] MEDS: VANCOMYCIN 750 MG (PMX) 250 ML IVPB SCH ×2 (00:30→11:40)
[2018-10-17 02:01] VITALS: BP 113/62; PULSE 71; RESP 18
[2018-10-17] MEDS: PANTOPRAZOLE (EC) 40 MG TAB PO SCH (05:52)
[2018-10-17 08:00] VITALS: BP 148/89; PULSE 73; RESP 19
[2018-10-17] MEDS: DOCUSATE SODIUM 100 MG CAP PO SCH (08:31)
[2018-10-17] MEDS: HYDROCHLOROTHIAZIDE 12.5 MG CAP PO SCH (08:31)
[2018-10-17] MEDS: BENAZEPRIL 20 MG TAB PO SCH (08:31)
[2018-10-17] MEDS: SILVER SULFADIAZINE 1% 25 GM CR TOP SCH (08:32)
[2018-10-17] MEDS: MUPIROCIN 2% 22 GM OINT TOP SCH (08:32)
[2018-10-17 14:08] VITALS: BP 124/76; PULSE 77; RESP 14
[2018-10-17 20:00] VITALS: BP 137/72; PULSE 84; RESP 18
[2018-10-17] MEDS: DAKINS 0.0125%(1/40) 473 ML SOLUTION TP SCH (21:38)
[2018-10-17] MEDS: TRIMETHOPRIM/SULFAMETHOX (DS) TAB PO SCH (21:38)
[2018-10-18] VITALS (20 sets, daily range): BP systolic 107–196; BP diastolic 59–99; PULSE 68–94; RESP 15–27
[2018-10-18] MEDS: DAKINS 0.0125%(1/40) 473 ML SOLUTION TP SCH ×4 (01:54→12:35)
[2018-10-18] MEDS: PANTOPRAZOLE (EC) 40 MG TAB PO SCH (05:14)
[2018-10-18] MEDS: HYDROCHLOROTHIAZIDE 12.5 MG CAP PO SCH (09:00)
[2018-10-18] MEDS: TRIMETHOPRIM/SULFAMETHOX (DS) TAB PO SCH ×2 (09:00→20:54)
[2018-10-18] MEDS: BENAZEPRIL 20 MG TAB PO SCH (09:00)
[2018-10-18] MEDS: DOCUSATE SODIUM 100 MG CAP PO SCH (09:00)
[2018-10-18] MEDS ORDERED: BUPIVACAINE 0.25% (MPF) 30 ML INJ ONE (13:23)
[2018-10-18] MEDS ORDERED: LIDOCAINE 1%/EPI 30 ML INJ ONE (13:23)
[2018-10-18] MEDS ORDERED: GENTAMICIN 80 MG INJ ONE ×2 (13:23→16:00)
[2018-10-18] MEDS ORDERED: POLYMYXIN/BACITRACIN 1L IRRIG ONE (13:23)
[2018-10-18] MEDS ORDERED: FENTAnyl 50 MCG/ML VIAL ONE ×2 (14:29→16:39)
[2018-10-18] MEDS ORDERED: GENTAMICIN 120 MG/NS (PMX) 100 ML IVPB ONE (15:00)
[2018-10-18] MEDS ORDERED: GENTAMICIN 160 MG in SOD CHLORIDE 0.9% 100 ML IVPB SCH (15:30)
[2018-10-18] MEDS ORDERED: GLYCOPYRROLATE 0.4 MG INJ ONE (16:00)
[2018-10-18] MEDS ORDERED: DESFLURANE 15 MIN ONE (16:00)
[2018-10-18] MEDS ORDERED: PROPOFOL 20 ML ONE (16:13)
[2018-10-18] MEDS ORDERED: KETOROLAC 30 MG INJ ONE (16:13)
[2018-10-18] MEDS ORDERED: ROCURONIUM 50 MG INJ ONE (16:13)
[2018-10-18] MEDS ORDERED: SUGAMMADEX SODIUM 200 MG/2 ML VIAL IV ONE (16:13)
[2018-10-18] MEDS ORDERED: SUCCINYLCHOLINE CHLORIDE 100 MG/5 ML SYG IV ONE (16:13)
[2018-10-18] MEDS ORDERED: LIDOCAINE 100 MG SYRINGE ONE (16:13)
[2018-10-18] MEDS ORDERED: ONDANSETRON 4 MG INJ IV PRN (17:00)
[2018-10-18] MEDS ORDERED: LABETALOL HCL 20MG INJ IV PRN (17:00)
[2018-10-18] MEDS ORDERED: DIPHENHYDRAMINE 50 MG INJ IV PRN (17:00)
[2018-10-18] MEDS ORDERED: FENTAnyl 50 MCG/ML VIAL IV PRN ×2 (17:00)
[2018-10-18] MEDS ORDERED: EPHEDrine 25 MG/5 ML SYG IV PRN (17:00)
[2018-10-18] MEDS ORDERED: HYDROmorphONE 1 MG/5 ML IV SYRINGE IV PRN ×3 (17:00)
[2018-10-18] MEDS ORDERED: hydrALAzine 20 MG INJ IV PRN (17:00)
[2018-10-18] MEDS ORDERED: MEPERIDINE 25 MG INJ IV PRN (17:00)
[2018-10-18] MEDS ORDERED: LABETALOL HCL 20MG INJ ONE (17:05)
[2018-10-18] MEDS: ONDANSETRON 4 MG INJ IV PRN (17:09)
[2018-10-18] MEDS: FENTAnyl 50 MCG/ML VIAL IV PRN ×2 (17:10→17:18)
[2018-10-18] MEDS: HYDROCODONE/APAP (5/325) TAB PO PRN (20:59)
[2018-10-19 02:00] VITALS: BP 102/55; PULSE 68; RESP 17
[2018-10-19] MEDS: HYDROCODONE/APAP (5/325) TAB PO PRN ×3 (04:17→23:57)
[2018-10-19] MEDS: PANTOPRAZOLE (EC) 40 MG TAB PO SCH (05:55)
[2018-10-19 07:47] VITALS: BP 134/63; PULSE 63; RESP 16
[2018-10-19] MEDS: TRIMETHOPRIM/SULFAMETHOX (DS) TAB PO SCH (08:25)
[2018-10-19] MEDS: DOCUSATE SODIUM 100 MG CAP PO SCH (08:26)
[2018-10-19] MEDS: BENAZEPRIL 20 MG TAB PO SCH (08:26)
[2018-10-19] MEDS: HYDROCHLOROTHIAZIDE 12.5 MG CAP PO SCH (08:26)
[2018-10-19] MEDS ORDERED: TRIMETHOPRIM/SULFAMETHOXAZOLE 15 ML in DEXTROSE 5% 500 ML IVPB SCH (14:00)
[2018-10-19 14:02] VITALS: BP 103/55; PULSE 78; RESP 16
[2018-10-19] MEDS ORDERED: KETOROLAC 30 MG INJ IV PRN (14:30)
[2018-10-19] MEDS: DAPTOMYCIN IVPB SCH (16:17)
[2018-10-19] MEDS: SOD CHLORIDE 0.9% IVPB SCH (16:17)
[2018-10-19] MEDS ORDERED: HYDROmorphONE 0.5 MG/0.5 ML SYG IV PRN (17:00)
[2018-10-19 20:34] VITALS: BP 139/62; PULSE 61; RESP 18
[2018-10-20 02:01] VITALS: BP 103/62; PULSE 88; RESP 20
[2018-10-20] MEDS: PANTOPRAZOLE (EC) 40 MG TAB PO SCH (05:07)
[2018-10-20] MEDS: HYDROCODONE/APAP (5/325) TAB PO PRN ×4 (05:42→23:05)
[2018-10-20 08:00] VITALS: BP 118/55; PULSE 85; RESP 18
[2018-10-20] MEDS: ONDANSETRON 4 MG INJ IV PRN (08:19)
[2018-10-20] MEDS: DOCUSATE SODIUM 100 MG CAP PO SCH (08:55)
[2018-10-20] MEDS: HYDROCHLOROTHIAZIDE 12.5 MG CAP PO SCH (08:55)
[2018-10-20] MEDS: BENAZEPRIL 20 MG TAB PO SCH (08:55)
[2018-10-20 14:00] VITALS: BP 137/62; PULSE 76; RESP 20
[2018-10-20] MEDS: DAPTOMYCIN IVPB SCH (16:08)
[2018-10-20] MEDS: SOD CHLORIDE 0.9% IVPB SCH (16:08)
[2018-10-20] MEDS: SOD CHLORIDE 0.45% 1,000 ML IV SCH (18:30)
[2018-10-20 20:16] VITALS: BP 119/66; PULSE 81; RESP 20
[2018-10-21 02:57] VITALS: BP 117/55; PULSE 68; RESP 18
[2018-10-21] MEDS: HYDROCODONE/APAP (5/325) TAB PO PRN ×5 (03:37→22:56)
[2018-10-21] MEDS: PANTOPRAZOLE (EC) 40 MG TAB PO SCH (06:34)
[2018-10-21] MEDS: SOD CHLORIDE 0.45% 1,000 ML IV SCH ×3 (06:48→21:06)
[2018-10-21] MEDS: DAKINS 0.0125%(1/40) 473 ML SOLUTION TP SCH ×3 (07:00→21:56)
[2018-10-21 08:00] VITALS: BP 137/66; PULSE 68; RESP 20
[2018-10-21] MEDS: MUPIROCIN 2% 22 GM OINT TOP SCH ×2 (08:50→21:56)
[2018-10-21] MEDS: HYDROCHLOROTHIAZIDE 12.5 MG CAP PO SCH (08:50)
[2018-10-21] MEDS: DOCUSATE SODIUM 100 MG CAP PO SCH (08:50)
[2018-10-21] MEDS: BENAZEPRIL 20 MG TAB PO SCH (08:50)
[2018-10-21 14:00] VITALS: BP 130/62; PULSE 88; RESP 20
[2018-10-21] MEDS ORDERED: DIPHENHYDRAMINE 25 MG CAP PO PRN (14:00)
[2018-10-21] MEDS: SOD CHLORIDE 0.9% IVPB SCH (14:47)
[2018-10-21] MEDS: DAPTOMYCIN IVPB SCH (14:47)
[2018-10-21 20:05] VITALS: BP 144/73; PULSE 81; RESP 18
[2018-10-21] MEDS: HYDROCORTISONE 1% 28 GM CR TOP SCH (21:55)
[2018-10-22 02:20] VITALS: BP 136/62; PULSE 62; RESP 18
[2018-10-22] MEDS: SOD CHLORIDE 0.45% 1,000 ML IV SCH ×2 (02:20→21:35)
[2018-10-22] MEDS: HYDROCODONE/APAP (5/325) TAB PO PRN ×5 (05:16→22:55)
[2018-10-22] MEDS: PANTOPRAZOLE (EC) 40 MG TAB PO SCH (05:16)
[2018-10-22 08:17] VITALS: BP 128/63; PULSE 76; RESP 18
[2018-10-22] MEDS: HYDROCHLOROTHIAZIDE 12.5 MG CAP PO SCH (08:33)
[2018-10-22] MEDS: HYDROCORTISONE 1% 28 GM CR TOP SCH ×2 (08:33→21:35)
[2018-10-22] MEDS: BENAZEPRIL 20 MG TAB PO SCH (08:33)
[2018-10-22] MEDS: MUPIROCIN 2% 22 GM OINT TOP SCH ×2 (08:35→21:31)
[2018-10-22] MEDS: DAKINS 0.0125%(1/40) 473 ML SOLUTION TP SCH ×2 (08:36→21:32)
[2018-10-22] MEDS: DOCUSATE SODIUM 100 MG CAP PO SCH (08:39)
[2018-10-22 14:00] VITALS: BP 142/67; PULSE 84; RESP 18
[2018-10-22] MEDS: DAPTOMYCIN IVPB SCH (14:20)
[2018-10-22] MEDS: SOD CHLORIDE 0.9% IVPB SCH (14:20)
[2018-10-22 20:05] VITALS: BP 146/68; PULSE 75; RESP 18
[2018-10-23 02:00] VITALS: BP 120/58; PULSE 70; RESP 18
[2018-10-23] MEDS: HYDROCODONE/APAP (5/325) TAB PO PRN ×4 (05:46→20:11)
[2018-10-23] MEDS: PANTOPRAZOLE (EC) 40 MG TAB PO SCH (05:46)
[2018-10-23 08:24] VITALS: BP 139/66; PULSE 70; RESP 18
[2018-10-23] MEDS: DOCUSATE SODIUM 100 MG CAP PO SCH (09:21)
[2018-10-23] MEDS: BENAZEPRIL 20 MG TAB PO SCH (09:22)
[2018-10-23] MEDS: HYDROCHLOROTHIAZIDE 12.5 MG CAP PO SCH (09:22)
[2018-10-23] MEDS: MUPIROCIN 2% 22 GM OINT TOP SCH ×2 (09:23→21:15)
[2018-10-23] MEDS: DAKINS 0.0125%(1/40) 473 ML SOLUTION TP SCH ×2 (09:23→21:16)
[2018-10-23] MEDS: HYDROCORTISONE 1% 28 GM CR TOP SCH ×2 (09:23→21:15)
[2018-10-23 14:00] VITALS: BP 128/60; PULSE 67; RESP 18
[2018-10-23] MEDS: DAPTOMYCIN IVPB SCH (15:46)
[2018-10-23] MEDS: SOD CHLORIDE 0.9% IVPB SCH (15:46)
[2018-10-23 20:00] VITALS: BP 126/58; PULSE 73; RESP 18
[2018-10-24 02:00] VITALS: BP 117/62; PULSE 62; RESP 17
[2018-10-24] MEDS: HYDROCODONE/APAP (5/325) TAB PO PRN ×4 (05:40→20:52)
[2018-10-24] MEDS: PANTOPRAZOLE (EC) 40 MG TAB PO SCH (05:40)
[2018-10-24 08:00] VITALS: BP 102/66; PULSE 66; RESP 16
[2018-10-24] MEDS: HYDROCHLOROTHIAZIDE 12.5 MG CAP PO SCH (08:30)
[2018-10-24] MEDS: BENAZEPRIL 20 MG TAB PO SCH (08:31)
[2018-10-24] MEDS: HYDROCORTISONE 1% 28 GM CR TOP SCH ×2 (08:33→21:33)
[2018-10-24] MEDS: DAKINS 0.0125%(1/40) 473 ML SOLUTION TP SCH ×2 (08:33→21:32)
[2018-10-24] MEDS: DOCUSATE SODIUM 100 MG CAP PO SCH (08:33)
[2018-10-24] MEDS: MUPIROCIN 2% 22 GM OINT TOP SCH ×2 (08:33→21:33)
[2018-10-24 14:00] VITALS: BP 119/65; PULSE 77; RESP 14
[2018-10-24] MEDS: SOD CHLORIDE 0.9% IVPB SCH (15:11)
[2018-10-24] MEDS: DAPTOMYCIN IVPB SCH (15:11)
[2018-10-24 20:47] VITALS: BP 105/59; PULSE 70; RESP 20
[2018-10-25 02:47] VITALS: BP 105/59; PULSE 60; RESP 16
[2018-10-25] MEDS: PANTOPRAZOLE (EC) 40 MG TAB PO SCH (05:31)
[2018-10-25] MEDS: HYDROCODONE/APAP (5/325) TAB PO PRN ×3 (05:31→18:36)
[2018-10-25 08:00] VITALS: BP 121/71; PULSE 68; RESP 16
[2018-10-25] MEDS: DOCUSATE SODIUM 100 MG CAP PO SCH (08:32)
[2018-10-25] MEDS: HYDROCORTISONE 1% 28 GM CR TOP SCH ×2 (08:32→20:56)
[2018-10-25] MEDS: BENAZEPRIL 20 MG TAB PO SCH (08:33)
[2018-10-25] MEDS: HYDROCHLOROTHIAZIDE 12.5 MG CAP PO SCH (08:33)
[2018-10-25] MEDS: DAKINS 0.0125%(1/40) 473 ML SOLUTION TP SCH ×2 (08:34→20:57)
[2018-10-25] MEDS: MUPIROCIN 2% 22 GM OINT TOP SCH ×2 (08:35→21:45)
[2018-10-25 14:00] VITALS: BP 123/64; PULSE 79; RESP 16
[2018-10-25 20:31] VITALS: BP 119/58; PULSE 76; RESP 20
[2018-10-25] MEDS: DOXYCYCLINE 100 MG TAB PO SCH (20:55)
[2018-10-26 02:37] VITALS: BP 109/54; PULSE 65; RESP 20
[2018-10-26] MEDS: PANTOPRAZOLE (EC) 40 MG TAB PO SCH (05:42)
[2018-10-26] MEDS: HYDROCODONE/APAP (5/325) TAB PO PRN ×3 (05:44→20:33)
[2018-10-26 08:00] VITALS: BP 143/83; PULSE 57; RESP 20
[2018-10-26 08:36] VITALS: BP 109/57; PULSE 69; RESP 18
[2018-10-26] MEDS: BENAZEPRIL 20 MG TAB PO SCH (09:00)
[2018-10-26] MEDS: HYDROCHLOROTHIAZIDE 12.5 MG CAP PO SCH (09:00)
[2018-10-26] MEDS: MUPIROCIN 2% 22 GM OINT TOP SCH ×2 (09:15→20:14)
[2018-10-26] MEDS: DAKINS 0.0125%(1/40) 473 ML SOLUTION TP SCH ×2 (09:15→20:15)
[2018-10-26] MEDS: DOCUSATE SODIUM 100 MG CAP PO SCH (09:15)
[2018-10-26] MEDS: DOXYCYCLINE 100 MG TAB PO SCH ×2 (09:15→20:14)
[2018-10-26] MEDS: HYDROCORTISONE 1% 28 GM CR TOP SCH ×2 (09:16→20:15)
[2018-10-26 14:00] VITALS: BP 110/62; PULSE 79; RESP 20
[2018-10-26 19:50] VITALS: BP 136/77; PULSE 88; RESP 20
== END 2018-10-26 20:30 | disposition home health service (06) | DRG 901 ==
LOC: E/R 12:52 → PP2 14:26
PROVIDERS: ADMIT Internal Medicine; ATTEND Internal Medicine
PROC: 0JX Subcutaneous Tissue and Fascia, Transfer (ICD-10-PCS; 2018-10-18)
PROC: 0JXC3ZC Transfer Pelvic Region Subcutaneous Tissue and Fascia with Skin, Subcutaneous Tissue and Fascia, Percutaneous Approach (ICD-10-PCS; 2018-10-18)
PROC: 0YB63ZZ Excision of Left Inguinal Region, Percutaneous Approach (ICD-10-PCS; 2018-10-18)
PROC: 0JB60ZZ Excision of Chest Subcutaneous Tissue and Fascia, Open Approach (ICD-10-PCS; principal; 2018-10-18 14:00)
DX: T81.31XA Disruption of external operation (surgical) wound, not elsewhere classified, initial encounter (principal); N17.0 Acute kidney failure with tubular necrosis; I96 Gangrene, not elsewhere classified; I10 Essential (primary) hypertension; C50.912 Malignant neoplasm of unspecified site of left female breast; Z22.322 Carrier or suspected carrier of Methicillin resistant Staphylococcus aureus; B95.62 Methicillin resistant Staphylococcus aureus infection as the cause of diseases classified elsewhere; L76.82 Other postprocedural complications of skin and subcutaneous tissue
CPT/HCPCS: 36415; 80048; 80202; 82550; 82565; 84520; 84703; 85025; 87070; 87081; 88304; J1170; J1200; J1580; J1885; J2001; J2405; J3010; J3370; J7060; J7120